=== PATIENT | female | born 1930 | race Hispanic/Latino ===

== ENCOUNTER 2017-02-28 11:27 | Inpatient (IN) | payer MEDICARE ==
[2017-02-28 11:42] VITALS: BMI 19.1
[2017-02-28] MEDS ORDERED: TDAP Vaccine 0.5 mL Syr IM ONE (12:14)
[2017-02-28] MEDS ORDERED: Morphine 2 mg/ml ISec IM STA (12:14)
--- NOTE | 2017-02-28 13:46 | RAD ---
PROCEDURE: HISTORY: hip injury COMPARISON: None TECHNIQUE: AP view of the pelvis and applicable frog leg views obtained. FINDINGS: A right intratrochanteric fracture probably mildly comminuted is suggested. Background right hip joint space narrowing and background generalized osteopenia suggested. left hip evaluation particularly the left subcapital region superiorly, is limited. This could be due to positional changes. Correlate clinically Sclerotic focus projects over the superior right iliac bone bordering the SI joint IMPRESSION: Right intertrochanteric fracture -comminuted. Right femoral head change in right acetabular fossa. These findings and the indeterminate findings regarding the left proximal femur called in to the ER and directly given to NAWAF Morales at 1:40 p.m. 02/28/2017
--- NOTE | 2017-02-28 14:25 | CT ---
PROCEDURE: CT of the Right Hip. HISTORY: hip fracture COMPARISON: Pelvis and right hip radiographs 02/28/2017.. TECHNIQUE: Contiguous axial images of the right hip were obtained without contrast as requested. Coronal and sagittal reformats were generated. Total dose: 326 mGy-cm. This CT exam was performed using one or more of the following dose reduction techniques: Automated exposure control, adjustment of the mA and/or kV according to patient size, and/or use of iterative reconstruction technique. FINDINGS: BONES: A comminuted impacted fracture of the proximal right femur is appreciate the intratrochanteric space with varus angulation resulting. No dislocation or subluxation. Medial margins of the fracture appear to terminate immediately cephalad to the level of the lesser trochanter. The lateral margins go through the greater trochanter. Limited local soft tissue edema is encountered. RIGHT HIP JOINT: No dislocation. Moderate degenerative changes are seen manifest at the weight-bearing portion the right hip joint consisting of cortical sclerosis and limited osteophyte formation. SOFT TISSUES: Limited local edema at fracture site. IMPRESSION: Comminuted impacted fracture proximal right femur through the intertrochanteric region without dislocation. 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 Please see discussion above. .
[2017-02-28 14:45] LABS: ADD MANUAL DIFF? NO
[2017-02-28 14:50] LABS: BASO # 0.05 K/mm3 (0.0-2.0); BASO % 0.3 % (0.0-3.0); EOS # 0.1 (0.0-0.7); EOS % 0.7 % (1.5-5.0); GRAN # 15.43 (1.4-6.5); GRAN % 85.5 % (50.0-68.0); HEMATOCRIT 37.5 % (36.0-48.0); LYMPH % 11.1 % (22.0-35.0); MEAN CELL VOLUME 88.7 fL (80.0-105.0); MEAN CORPUSCULAR HEMOGLOBIN 29.8 pg (25.0-35.0); MEAN CORPUSCULAR HGB CONC 33.6 g/dl (31.0-37.0); MEAN PLATELET VOLUME 10.2 fl (7.0-11.0); MONO # 0.4 (0.1-0.6); MONO % 2.4 % (1.0-6.0); PLATELET COUNT 164 10^3/uL (120.0-450.0); RED CELL DISTRIBUTION WIDTH 13.3 % (11.5-14.5)
[2017-02-28 14:59] LABS: ALB/GLOB RATIO 1.1 (1.1-1.8); ALKALINE PHOSPHATASE 75 U/L (38-133); ALT/SGPT 27 U/L (7-56); AST/SGOT 24 U/L (15-39); BILIRUBIN,TOTAL 0.6 mg/dL (0.2-1.3); BLOOD UREA NITROGEN 16 mg/dL (7-21); CARBON DIOXIDE 26 mmol/L (21-33); CHLORIDE 102 mmol/L (98-107); GFR AFRICAN-AMERICAN > 60; GLUCOSE,RANDOM 129 mg/dL (70-110); INR 1.01 (0.93-1.08); PARTIAL THROMBOPLASTIN TIME 22.9 Seconds (23.7-30.8); POTASSIUM 4.1 mmol/L (3.6-5.0); SODIUM 138 mmol/L (132-148); TOTAL PROTEIN 7.6 g/dL (5.8-8.3)
--- NOTE | 2017-02-28 15:55 | RAD ---
HISTORY: pre-op COMPARISON: 07/29/2016 FINDINGS: LUNGS: The mid lung zone left perihilar nodular opacity concerning for a pulmonary nodule/mass is estimated to be 2.2 cm. This is slightly more conspicuous. No infiltrate appreciated. PLEURA: No significant pleural effusion identified, no pneumothorax apparent. CARDIOVASCULAR: Normal. OSSEOUS STRUCTURES: Generalized osteopenia with thoraco lumbar spondylosis VISUALIZED UPPER ABDOMEN: Atherosclerotic vascular calcifications thoracic and upper abdominal aorta OTHER FINDINGS: None. IMPRESSION: Left mid lung zone pulmonary nodule suspect If not already known, consider CT chest . No pulmonary infiltrate
[2017-02-28] MEDS ORDERED: HYDROmorphone 0.5 mg/0.5 ml ISec IVP STA (16:01)
--- NOTE | 2017-02-28 16:01 | ED PDOC ---
Arrival/HPI - General Chief Complaint: Trauma Time Seen by Provider: 02/28/17 12:12 Historian: Patient - History of Present Illness Narrative History of Present Illness (Text): 02/28/17 16:55 Patient sts she tripped and fell, landing on her right hip area. Patient denies head injury, denies any other trauma or pain. Symptom Onset: Sudden Symptom Course: Unchanged Quality: Throbbing Severity Level: 10 Context: Walking Past Medical History - Provider Review Nursing Documentation Reviewed: Yes - Infectious Disease Hx of Infectious Diseases: None - Tetanus Immunization Tetanus Immunization: Unknown - Cardiac Hx Hypertension: Yes - Neurological Hx Transient Ischemic Attacks (TIA): Yes - Psychiatric Hx Depression: No Hx Emotional Abuse: No Hx Physical Abuse: No Hx Substance Use: No - Surgical History Other/Comment: R index finger sx rhinoplasty - Anesthesia Hx Anesthesia: Yes Hx Anesthesia Reactions: No Hx Malignant Hyperthermia: No - Suicidal Assessment Feels Threatened In Home Enviroment: No Family/Social History - Physician Review Nursing Documentation Reviewed: Yes Family/Social History: Unknown Family HX Smoking Status: Never Smoked Hx Alcohol Use: No Hx Substance Use: No Allergies/Home Meds Allergies/Adverse Reactions: Allergies Egg Derived Allergy (Verified 03/26/16 16:24) ANAPHYLAXIS Home Medications: Home Meds Medication Instructions Recorded Confirmed Montelukast Sodium [Singulair] 1 tab PO DAILY 09/05/13 03/26/16 amLODIPine [Norvasc] 5 mg PO DAILY 03/26/16 03/26/16 Review of Systems - Physician Review All systems were reviewed & negative as marked: Yes - Review of Systems Musculoskeletal: Other (right hip pain) Physical Exam Vital Signs Reviewed: Yes Vital Signs Temp Pulse Resp BP Pulse Ox 02/28/17 16:15 61 18 145/61 100 02/28/17 15:15 69 18 121/63 98 02/28/17 13:31 74 18 122/61 98 02/28/17 12:39 78 18 124/65 98 02/28/17 11:41 97.7 F 81 18 126/67 97 Temperature: Afebrile Blood Pressure: Normal Pulse: Regular Respiratory Rate: Normal Appearance: Positive for: Well-Appearing, Non-Toxic, Uncomfortable Pain Distress: Mild Mental Status: Positive for: Alert and Oriented X 3 - Systems Exam Head: Present: Atraumatic, Normocephalic Pupils: Present: PERRL Extroacular Muscles: Present: EOMI Conjunctiva: Present: Normal Nose (External): Present: Atraumatic Neck: Present: Normal Range of Motion. No: MIDLINE TENDERNESS, Paraspinal Tenderness Respiratory/Chest: Present: Clear to Auscultation, Good Air Exchange Cardiovascular: Present: Regular Rate and Rhythm, Normal S1, S2 Abdomen: No: Tenderness, Distention, Normal Bowel Sounds Back: Present: Normal Inspection. No: Midline Tenderness, Paraspinal Tenderness Upper Extremity: Present: Normal ROM, Capillary Refill < 2s, Other (right elbow with smal abrasion, no active bleeding, no gross contamination.). No: Deformity Lower Extremity: Present: NORMAL PULSES, Tenderness (right hip), Swelling ( right hip), Deformity (right leg slightly externally rotated), Neurovascularly Intact, Capillary Refill < 2 s Neurological: Present: GCS=15, Speech Normal, Motor Func Grossly Intact, Normal Sensory Function Psychiatric: Present: Alert, Oriented x 3 Medical Decision Making ED Course and Treatment: 02/28/17 17:02 Morphine 2 mg IV was ordered. Labs sent, ECG, CXR. Case was d/w patient PMD who accepted an admission and requested Ortho consult with . case was d/w who accepted the case and came to Ed to evaluate the patient at bedside. Patient still c/o pain, Dilaudid 0.5 mg IVP ordered. - Lab Interpretations Lab Results: 02/28/17 14:40 02/28/17 14:40 Lab Results 02/28/17 14:40: Blood Type O POSITIVE, Antibody Screen Negative, BBK History Checked No verified bt 02/28/17 14:40: PT 10.9, INR 1.01, APTT 22.9 L 02/28/17 14:40: Sodium 138, Potassium 4.1, Chloride 102, Carbon Dioxide 26, Anion Gap 14, BUN 16, Creatinine 0.7, Est GFR ( Amer) > 60, Est GFR (Non- Af Amer) > 60, Random Glucose 129 H, Calcium 9.0, Total Bilirubin 0.6, AST 24, ALT 27, Alkaline Phosphatase 75, Total Protein 7.6, Albumin 3.9, Globulin 3.7, Albumin/Globulin Ratio 1.1 02/28/17 14:40: WBC 18.0 H, RBC 4.23, Hgb 12.6, Hct 37.5, MCV 88.7, MCH 29.8, MCHC 33.6, RDW 13.3, Plt Count 164, MPV 10.2, Gran % 85.5 H, Lymph % (Auto) 11.1 L, Dauphin % (Auto) 2.4, Eos % (Auto) 0.7 L, Baso % (Auto) 0.3, Gran # 15.43 H , Lymph # 2.0, Dauphin # 0.4, Eos # 0.1, Baso # 0.05 - RAD Interpretation Narrative RAD Interpretations (Text): 02/28/17 17:01 IMPRESSION: Comminuted impacted fracture proximal right femur through the intertrochanteric region without dislocation. 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 Please see discussion above.. Radiology Orders: 02/28/17 12:13 Hip Right [HIP MIN 2V W/ PELVIS RT] [RAD] Stat 02/28/17 13:46 EXT LOWER W/O CONTRAST RIGHT [CT] Stat 02/28/17 15:27 CHEST PORTABLE [RAD] Stat - Medication Orders Current Medication Orders: Discontinued Medications Hydromorphone HCl (Dilaudid) 0.5 mg IVP STAT STA Stop: 02/28/17 16:02 Last Admin: 02/28/17 16:22 Dose: 0.5 mg Morphine Sulfate (Morphine) 2 mg IM STAT STA Stop: 02/28/17 12:15 Last Admin: 02/28/17 12:42 Dose: 2 mg Tetanus/Reduced Diphtheria/Acell Pertussis (Boostrix Vaccine Inj) 0.5 ml IM .ONCE ONE Stop: 02/28/17 12:15 Last Admin: 02/28/17 12:42 Dose: Disposition/Present on Arrival - Present on Arrival Any Indicators Present on Arrival: No History of DVT/PE: No History of Uncontrolled Diabetes: No Urinary Catheter: No History of Decub. Ulcer: No History Surgical Site Infection Following: None - Disposition Have Diagnosis and Disposition been Completed?: Yes Diagnosis: Hip fracture Disposition: HOSPITALIZED Disposition Time: 16:01 Patient Plan: Admission Patient Problems: Current Active Problems Problem Status Onset Hip fracture Acute Condition: FAIR
--- NOTE | 2017-02-28 20:19 | CARD ---
APPROVED REPORT EKG Measurement Heart [id number] <Conclusion> Normal sinus rhythm Normal ECG
--- NOTE | 2017-03-01 03:36 | CON ---
DATE: 02/28/2017 REASON FOR CONSULTATION: Preop evaluation risk stratification for hip fracture possible OR in a.m. BRIEF CLINICAL HISTORY: This is an 86-year-old female with past medical history significant for hypertension. No documented coronary artery disease. Very active. Lives in second floor. Take stairs. No complaint of chest pain or shortness of breath. Who went for shopping, parked her car, and then went back again to check on the car whether the car crosses the yellow line. There was a steep curve there and patient tripped and stumbled and fell down and sustained right hip fracture, brought to the ER. Denies any chest pain, shortness of breath or palpitation. Denies any dyspnea on exertion. PAST MEDICAL HISTORY: Significant for hypertension. No documented history of coronary artery disease. SOCIAL HISTORY: Denies any history of alcohol abuse. CURRENT MEDICATIONS: Patient takes baby aspirin 81 mg, I believe; Norvasc 5 mg daily; Singulair 10 mg daily. REVIEW OF SYSTEMS: As per HPI. And 14-point negative except as per HPI. PHYSICAL EXAMINATION: As follows: VITAL SIGNS: Height of the patient 5 feet 3 inches. Weight of the patient is 108 pounds, body mass index 19.1 kg/m2. Rest of the examination as follows: temperature afebrile, heart rate 81, blood pressure 126/60. HEENT: PERRLA, extraocular muscles intact. NECK: Supple. No carotid bruit. No thyromegaly. CHEST: Clear to auscultation. HEART: S1 and S2, regular. ABDOMEN: Soft. EXTREMITIES: Clubbing and cyanosis negative. LABORATORY DATA: EKG shows normal sinus rate of 89. Blood workup as follows; WBC 18, hemoglobin 12.6, hematocrit 37.5, platelet count 164. Chemistry shows sodium 130, potassium 4.1, chloride 102, carbon dioxide 26, anion gap of 14, BUN 16, creatinine 0.9. Total protein 7.6, albumin 3.9, albumin/globulin ratio 1.1. IMPRESSION: An 86-year-old female with no significant history of hypertension. Very active lifestyle. No history of chest pain or angina or congestive heart failure or arrhythmia. Status post fall, status post fracture of the hip requiring open reduction and internal fixation. RECOMMENDATION: Patient is cleared to go from cardiology point of view to go for surgery and no absolute contraindication. No history of angina, arrhythmia or congestive heart failure, moderate risk because of underlying age and comorbidity. Recommend perioperative beta nakia, start tonight and resume Norvasc tomorrow if needed and we will follow with you with lipid profile, TSH, hemoglobin A1c. Thank you for providing the opportunity in taking care of Gabriela Lynch. Thank you Dr. Senior, we will follow with you. We will discuss. Raymon Carpio MD
--- NOTE | 2017-03-01 04:03 | CON ---
DATE: 02/28/2017 HISTORY OF PRESENT ILLNESS: An 86-year-old female fell today on the street, [address] about [facility], [address], and fractured her right hip. X-ray shows comminuted intertrochanteric fracture, right hip, with high intertrochanteric at the base of the neck with comminuted greater trochanter. She is in very good condition, sees Dr. Aaron Fraser and I explained for her to get out of bed and ambulate, and we have to secure the hip with an intramedullary pin and Biomet peritroch jannie. We could do the surgery tomorrow at 07:30 that could change, but I am going to get a medical clearance with Dr. Fraser and cardiac consult with Dr. Carpio and we plan to do her right hip surgery for pin in the morning and then we will get her up out of bed, and she will be able to put partial weight on that right hip and then go to rehab possibly for couple of weeks before she goes home to live alone again. FINAL DIAGNOSIS: High intertrochanteric fracture with comminution of the right hip. Narendra Senior DO [facility]
[2017-03-01] MEDS ORDERED: HYDROmorphone 0.5 mg/0.5 ml ISec IVP ONE (06:36)
--- NOTE | 2017-03-01 06:41 | CP.PCM.PN ---
Subjective - Date & Time of Evaluation Date of Evaluation: 03/01/17 Time of Evaluation: 06:41 - Subjective Subjective: Patient was seen at bedside. States that she has pain in left hip. States that they were moving her this morning in the bed, that is why she has pain. States that she was fine all night. Has no other complaints. ROS:Negative except as mentioned above. Medical record was reviewed. This 86 year old woman was admitted after she sustained a right hip fracture when she tripped after parking her car. Has PMH of HTN,TIA,compression fracture T10,chronic rhiniti, B/L cataract surgery,left wrist fracture. Objective - Vital Signs/Intake and Output Vital Signs (last 24 hours): Temp Pulse Resp BP Pulse Ox 98.4 F 83 20 144/73 97 02/28/17 21:06 02/28/17 21:06 02/28/17 21:06 02/28/17 21:06 02/28/17 19:46 Intake and Output: 02/28/17 03/01/17 18:59 06:59 Intake Total 120 Balance 120 - Medications Medications: Current Medications Amlodipine Besylate (Norvasc) 5 mg PO DAILY [facility] Metoprolol Tartrate (Lopressor) 12.5 mg PO BID [facility] Last Admin: 02/28/17 18:47 Dose: 12.5 mg - Labs Labs: PT 10.9 Seconds (9.9-11.8) 02/28/17 14:40 INR 1.01 (0.93-1.08) 02/28/17 14:40 APTT 22.9 Seconds (23.7-30.8) L 02/28/17 14:40 - Constitutional Appears: Well, No Acute Distress - Head Exam Head Exam: ATRAUMATIC, NORMAL INSPECTION, NORMOCEPHALIC - Eye Exam Eye Exam: Normal appearance - ENT Exam ENT Exam: Normal External Ear Exam - Neck Exam Neck Exam: Normal Inspection - Respiratory Exam Respiratory Exam: NORMAL BREATHING PATTERN - Cardiovascular Exam Cardiovascular Exam: absent: JVD - GI/Abdominal Exam GI & Abdominal Exam: absent: Distended - Rectal Exam Rectal Exam: Deferred - Exam Additional comments: Deferred. - Extremities Exam Additional comments: Right hip tenderness positive. - Back Exam Back Exam: NORMAL INSPECTION - Neurological Exam Neurological Exam: Alert, Oriented x3 - Psychiatric Exam Psychiatric exam: Normal Affect, Normal Mood - Skin Skin Exam: Normal Color Assessment and Plan - Assessment and Plan (Free Text) Assessment: Right hip pain. Right hip intertrochantric fracture. HTN. Hx TIA. Chronic rhinitis. Plan: Dilaudid 0.5 mg IV now. For ORIF right hip this AM. Continue present management.
[2017-03-01 06:51] LABS: ADD MANUAL DIFF? NO
[2017-03-01] MEDS ORDERED: HYDROmorphone 0.5 mg/0.5 ml ISec SC PRN (07:12)
[2017-03-01 07:18] LABS: ALB/GLOB RATIO 1.1 (1.1-1.8); ALKALINE PHOSPHATASE 68 U/L (38-133); ALT/SGPT 26 U/L (7-56); AST/SGOT 25 U/L (15-39); BLOOD UREA NITROGEN 16 mg/dL (7-21); CALCIUM 9.1 mg/dL (8.4-10.5); CARBON DIOXIDE 27 mmol/L (21-33); CHLORIDE 102 mmol/L (98-107); CHOLESTEROL 208 mg/dL (130-200); GFR AFRICAN-AMERICAN > 60; GLUCOSE,RANDOM 113 mg/dL (70-110); PHOSPHOROUS 3.2 mg/dL (2.5-4.5); POTASSIUM 4.1 mmol/L (3.6-5.0); SODIUM 139 mmol/L (132-148); TOTAL PROTEIN 7.5 g/dL (5.8-8.3)
[2017-03-01] MEDS ORDERED: Bupivacaine 0.5% Inj(30mL) ONE (07:29)
[2017-03-01 07:32] LABS: BASO # 0.02 K/mm3 (0.0-2.0); BASO % 0.2 % (0.0-3.0); EOS % 0.1 % (1.5-5.0); GRAN # 7.01 (1.4-6.5); LYMPH # 2.6 (1.2-3.4); LYMPH % 24.5 % (22.0-35.0); MEAN CELL VOLUME 88.1 fL (80.0-105.0); MEAN CORPUSCULAR HEMOGLOBIN 29.8 pg (25.0-35.0); MEAN CORPUSCULAR HGB CONC 33.8 g/dl (31.0-37.0); MEAN PLATELET VOLUME 10.4 fl (7.0-11.0); MONO # 0.9 (0.1-0.6); MONO % 8.2 % (1.0-6.0); PLATELET COUNT 149 10^3/uL (120.0-450.0); RED CELL DISTRIBUTION WIDTH 13.6 % (11.5-14.5); WHITE BLOOD COUNT 10.5 10^3/ul (4.5-11.0)
[2017-03-01] MEDS ORDERED: Phenylephrine 10 mg/ml Inj ONE (08:24)
[2017-03-01] MEDS ORDERED: Etomidate 20 mg/10ml Inj IV ONE (08:24)
[2017-03-01] MEDS ORDERED: ePHEDrine 50 mg/ml Inj ONE (08:24)
[2017-03-01] MEDS ORDERED: Metoprolol 1 mg/ml Inj IVP ONE (09:24)
[2017-03-01] MEDS ORDERED: Glycopyrrolate 0.2 mg/ml (2ml vial) ONE (09:25)
[2017-03-01] MEDS ORDERED: Neostigmine Methylsulfate 3mg/3ml Syringe IV ONE (09:36)
[2017-03-01] MEDS ORDERED: Morphine 4 mg/ml ISec ONE (09:37)
[2017-03-01] MEDS ORDERED: Lactated Ringer's 1,000 ML IV SCH (10:01)
[2017-03-01] MEDS ORDERED: Morphine 2 mg/ml ISec IVP PRN (10:01)
[2017-03-01 15:12] LABS: ADD MANUAL DIFF? NO
[2017-03-01 15:17] LABS: BASO # 0.03 K/mm3 (0.0-2.0); BASO % 0.2 % (0.0-3.0); GRAN # 10.85 (1.4-6.5); GRAN % 82.3 % (50.0-68.0); HEMATOCRIT 28.1 % (36.0-48.0); LYMPH # 1.3 (1.2-3.4); LYMPH % 9.6 % (22.0-35.0); MEAN CELL VOLUME 89.5 fL (80.0-105.0); MEAN CORPUSCULAR HEMOGLOBIN 29.6 pg (25.0-35.0); MEAN CORPUSCULAR HGB CONC 33.1 g/dl (31.0-37.0); MEAN PLATELET VOLUME 8.7 fl (7.0-11.0); MONO % 7.9 % (1.0-6.0); PLATELET COUNT 169 10^3/uL (120.0-450.0); RED CELL DISTRIBUTION WIDTH 13.6 % (11.5-14.5); WHITE BLOOD COUNT 13.2 10^3/ul (4.5-11.0)
--- NOTE | 2017-03-01 16:03 | PN ---
DATE: 03/01/2017 REASON FOR CONSULTATION: Followup preop evaluation risk stratification for hip fracture possible OR this morning. BRIEF CLINICAL HISTORY: The patient is lying flat, denies chest pain, shortness of breath or any palpitations awaiting to go the OR. PHYSICAL EXAMINATION: VITAL SIGNS: Temperature afebrile, heart rate 90, blood pressure 120/65. HEENT: PERRLA. Extraocular muscles are intact. NECK: Supple. No carotid bruit, no thyromegaly. CHEST: Clear to auscultation. HEART: S1 and S2 regular. ABDOMEN: Soft. EXTREMITIES: Clubbing and cyanosis negative. LABORATORY DATA: WBC 10.5, hemoglobin 11.8, hematocrit 34.0, and platelet count of 149. Chemistries shows sodium 139, potassium 4.0, chloride 102, carbon dioxide 27, anion gap of 14, BUN 16, creatinine 0.7, TSH . Total cholesterol 208, LDL 137, HDL 50. Hemoglobin A1c is 6.2. IMPRESSION: Status post fall, status post right hip fracture for open reduction this morning. No evidence of reversible ischemia or arrhythmia or congestive heart failure. The patient is cleared to go from cardiac point of view. Discussed with Dr. Senior yesterday, no absolute contraindication. Continue perioperative beta nakia. Can continue low-dose beta-nakia. Continue enoxaparin. Continue amlodipine . We will repeat the blood workup in the morning. Add mag phos. We will get echo to assess LV function in the morning. Raymon Carpio MD
--- NOTE | 2017-03-01 19:56 | OP ---
PROCEDURE DATE: 03/01/2017 PREOPERATIVE DIAGNOSIS: Comminuted intertrochanteric fracture, right hip with comminuted greater trochanter. POSTOPERATIVE DIAGNOSIS: Comminuted intertrochanteric fracture, right hip with comminuted greater trochanter. PROCEDURE: Open reduction internal fixation of the comminuted displaced intertrochanteric fracture with a Biomet peritrochanteric jannie using a jannie that was 11 mm wide x 170 mm long, lag screw of 90 mm long and locked distally with a 28 mm 5.0 cortical screw. SKEWER UP SURGEON: podiatry resident . TYPE OF ANESTHESIA: General endotracheal. DESCRIPTION OF PROCEDURE: The patient was taken to the OR, right hip prepped and draped in a sterile fashion on the fracture table with gentle traction. X-rays showed that we could reduce to a highly comminuted fracture, but it was still displaced making the surgical procedure more difficult. We made a 2-inch incision above the greater trochanter. With a comminuted piece of greater trochanter, we put the threaded-tip guidewire through the fracture into the distal shaft after three tries. Once it was in an acceptable position, we reamed the proximal femur 5 cm with the 14 mm reamer. Then, we inserted the bead-tip guidewire to allow us to introduce 170 mm long peritrochanteric jannie, which was done. Then, we put the outrigger on to allow us to put in a second incision to get the guide pin in the femoral head and neck. This was done under C-arm control. There was a longer calcar in the AP view and slightly posterior on the lateral view [id number] from subchondral. Then, we put in the lag screw which was 90 mm long lag screw, kept it subchondral and fracture was reduced. Then, we put in the most distal locking screw which was a 5-mm, 28-mm long cortical screw. X-rays showed good position of the fracture and the hardware. Three wounds were irrigated with normal saline Kantrex, closed in layers with #1 Vicryl for the fascia proximally, 2-0 Vicryl subcutaneous tissue and skin with stainless steel cherelle. The other two wounds were closed in a similar fashion. The patient was taken to the recovery room in good condition. Narendra Senior DO [facility] # [id number] [facility]
[2017-03-01] MEDS ORDERED: ceFAZolin 1 gm in NS 1 GM/100 ML BAG IVPB ONE (20:00)
--- NOTE | 2017-03-01 20:37 | HP ---
HISTORY OF PRESENT ILLNESS: The patient is an 86-year-old female who is admitted with a right hip fracture. Apparently, the patient was driving, she parked her car, went around to get to the other side when she tripped and fell fracturing her hip. She denies any dizziness, palpitations, loss of consciousness, or syncope. The patient is evaluated in the emergency room. Consultation with Dr. Senior was called and the patient is to be admitted for surgery tomorrow. PAST MEDICAL HISTORY: Positive for hypertension since 2003. She suffered a transient ischemic attack in [place] in 2003. She is known to have a compression fracture of T10 since 10/2004. She also has chronic rhinitis. She is status post bilateral cataract surgery, status post left wrist fracture in 2013 and recently had a trip and fall and suffered a fracture of her left zygoma in December. In 2015, she fractured her left index finger when it was caught in a car door. She was repaired surgically and pins were removed in 07/2017. ALLERGIES: SHE IS KNOWN TO BE ALLERGIC TO [employer]. MEDICATION: Medications at the time of admission included Norvasc 5 mg, aspirin 81 mg, and Singulair 10 mg. SOCIAL HISTORY: She has not smoked cigarettes since 1968. She is a nonalcoholic drinker. She is a since 2007 and has 2 sons, one lives locally and one is in [place]. REVIEW OF SYSTEMS: Otherwise unremarkable. PHYSICAL EXAMINATION GENERAL: The patient is awake, alert and oriented. HEENT: Unremarkable. NECK: Supple. There is no lymphadenopathy. No goiter. LUNGS: Clear to auscultation and percussion. HEART: Regular. No murmurs are appreciated. ABDOMEN: Soft and nontender. EXTREMITIES: Free of cyanosis, clubbing, or edema. Positive for right hip fracture. NEUROLOGIC: The patient is awake, alert, and oriented with no focal neurological signs. LABORATORY DATA: Reveal a white blood cell count of 9.0, hemoglobin is 12.9, hematocrit 39.0 and platelet count is 236. Sodium is 143, potassium is 4.4, blood urea nitrogen is 22, creatinine 1.2, nonfasting glucose is 147. EKG shows regular sinus rhythm. Chest x-ray shows a possible nodule in the mid left lung field this will be compared to previous studies is this new or present I do not know at this time. X-rays of the extremity show fracture of the proximal right femur. IMPRESSION AND PLAN: This 86-year-old female who was admitted with a hip fracture. She is to be evaluated by Dr. Senior and undergo surgical repair of the hip fracture in the morning. Narendra Fraser MD
--- NOTE | 2017-03-02 00:20 | PN ---
DAILY PROGRESS NOTE SUBJECTIVE: This is an 86-year-old woman who fell outside just yesterday fracturing her right hip. Today, she is in the operating room with __Mehdi___ for surgical intervention and repair of the fracture. PLAN: We will follow her closely in the perioperative and postoperative period and until she is off for physical therapy. Aaron Fraser MD MTDD
[2017-03-02 07:14] LABS: ADD MANUAL DIFF? NO
[2017-03-02 07:18] LABS: BASO # 0.03 K/mm3 (0.0-2.0); BASO % 0.4 % (0.0-3.0); EOS % 0.4 % (1.5-5.0); GRAN # 5.44 (1.4-6.5); GRAN % 65.8 % (50.0-68.0); HEMATOCRIT 25.1 % (36.0-48.0); LYMPH # 1.9 (1.2-3.4); LYMPH % 23.3 % (22.0-35.0); MEAN CELL VOLUME 89.6 fL (80.0-105.0); MEAN CORPUSCULAR HEMOGLOBIN 29.3 pg (25.0-35.0); MEAN CORPUSCULAR HGB CONC 32.7 g/dl (31.0-37.0); MONO # 0.8 (0.1-0.6); MONO % 10.1 % (1.0-6.0); PLATELET COUNT 162 10^3/uL (120.0-450.0); RED CELL DISTRIBUTION WIDTH 13.8 % (11.5-14.5); WHITE BLOOD COUNT 8.3 10^3/ul (4.5-11.0)
[2017-03-02 08:20] LABS: ALKALINE PHOSPHATASE 49 U/L (38-133); ALT/SGPT 22 U/L (7-56); AST/SGOT 29 U/L (15-39); BILIRUBIN,TOTAL 0.8 mg/dL (0.2-1.3); BLOOD UREA NITROGEN 14 mg/dL (7-21); CALCIUM 8.2 mg/dL (8.4-10.5); CARBON DIOXIDE 29 mmol/L (21-33); CHLORIDE 101 mmol/L (98-107); GFR AFRICAN-AMERICAN > 60; GLUCOSE,RANDOM 112 mg/dL (70-110); MAGNESIUM 1.9 mg/dL (1.7-2.2); POTASSIUM 4.8 mmol/L (3.6-5.0); SODIUM 137 mmol/L (132-148)
[2017-03-02] MEDS: Enoxaparin 30 mg Syringe SC SCH (10:36)
--- NOTE | 2017-03-02 13:58 | RAD ---
PROCEDURE: Intraoperative Fluoroscopy. HISTORY: RIGHT HIP INTRAMEDULLARY NAIL FINDINGS: Fluoroscopic assistance was provided. Approximately 73.8 seconds fluoroscopy time during this procedure. Please refer to the operative report for additional details.
--- NOTE | 2017-03-02 14:15 | PN ---
DATE: 03/02/2017 FIRST DAY POSTOP NOTE Had ORIF of right hip on 03/01/2017. She has no complaints of undue pain. Hemoglobin did drop from admission of 12.6 to 8.2, so we will give her two units of packed cells. We will encourage her to get up out of bed. She can put weight on her leg, and she is very depressed today and she does not want to live any longer, so I am going to get a psychological consult with to help her get rid of her depression, so she could participate in therapy. She would be able to put weight on her leg and ambulate with a walker. We will give her two units of packed cells to help her feel stronger. Maybe this will help her be not so depressed too. I plan on sending her to [facility] for a subacute rehab when she is medically cleared. Narendra Senior DO MTDD
--- NOTE | 2017-03-02 14:25 | PN ---
DATE: 03/02/2017 REASON FOR CONSULTATION: Postop followup for hip fracture, preop evaluation before surgery. SUBJECTIVE: The patient is status post postop right hip surgery, lying flat; not complaining of chest pain, shortness of breath or any palpitation. OBJECTIVE: Lying flat in the bed, not in apparent distress. PHYSICAL EXAMINATION: VITAL SIGNS: Temperature afebrile, heart rate 92, blood pressure 107/56. HEENT: PERRLA. EOM intact. NECK: Supple. No carotid bruit or thyromegaly. CHEST: Clear to auscultation. HEART: S1 and S2 regular. ABDOMEN: Soft. EXTREMITIES: Clubbing and cyanosis negative. LABORATORY DATA: Blood workup as follows: WBC 8.3, hemoglobin 8.2, hematocrit 25.1, platelet count 162. Chemistry shows sodium 137, potassium 4.0, chloride 101, carbon dioxide 29, anion gap of 12, BUN 14, creatinine 0.8, phosphorus 3, magnesium 1.9. IMPRESSION: The patient is an 86-year-old female with no significant past medical history except hypertension, admitted after a fall, tripped outside and sustained fracture of right hip, status post open reduction and internal fixation, hypertension, postop anemia. PLAN: I recommended continued DVT prophylaxis. Continue low-dose beta nakia, 12.5 b.i.d. Amlodipine was started. I will get echo to assess LV function. Two units of packed RBC blood transfusion was ordered by Dr. Senior. We will give Lasix in between packed RBC transfusion. Thank you in taking care of the patient. We will follow with you. Raymon Carpio MD
--- NOTE | 2017-03-03 04:30 | CON ---
DATE: 03/02/2017 PSYCHIATRIST: Dr. Anthony. HISTORY OF PRESENT ILLNESS: The patient is 86 years old female not known previous psychiatric history. The patient denied history of depression, denied history of suicidal attempt, denied being on a psychotropic medications. The patient was admitted on surgical floor, status post fall. The patient fractured her right hip. Psych consult was called for evaluation of possible suicidal ideation. The patient was seen and examined. Discussed with orthopedic surgeon Dr. Senior as well as primary care physician Dr. Fraser. The patient presented to be alert and oriented, pleasant cooperative. The patient reported that she has for the past 2 years. The patient reported that she has feelings that she will be never the same again. The patient also afraid of future fallings. The patient also reported that she has incidence where she could defecate on herself and it is very distressing for the patient. The patient reported that she went to the [facility] in the past. She is on special diet right now, fat free diet. The patient reported that present moment she cannot have her life back. As per Dr. Senior, the patient can ambulate within next 2 weeks, but the patient said that it is not important because she will be scared of walking again because of falls. The patient reported that she is not depressed. She denied that she feels hopeless or helpless. The patient also denied any hallucinations. No memory problems. The patient is quite aware what is going on with her from the magical standpoint. At the same time, the patient said that she was thinking about end of her life because she has "no curiosity for life." The patient also reported that she use to enjoy to go to [facility] right now. She does not feel comfortable to go their anymore because of risk of falls. The patient was making statements like "I need to do what I need to do." "Why you cannot respect my decision, its time for meet to go." At the same point, the patient is willing to have surgery, is willing to go subacute rehab and willing to participate in treatment plan. PHYSICAL EXAMINATION VITAL SIGNS: This scientific writer reviewed vital signs; temperature 98.3, pulse of 92, blood pressure 107/56, respirations 18, oxygen saturation of 98. MEDICATIONS: Reviewed. The patient currently on Tylenol, Norvasc, Lovenox, Dilaudid 0.5 mg subcutaneously q. 4 hours p.r.n. The patient did not ask for any opioids, Lopressor 12.5 mg twice a day, morphine 2 mg IV push q. 15 minutes p.r.n. for pain as well as Zofran. LABORATORY DATA: Labs reviewed and seems to be within normal limits. Hemoglobin 8.2, hematocrit 25. Coagulation reviewed. Chemistry reviewed. Reports reviewed. The patient has multiple medical issues. The patient had a history of hypertension, transient ischemic attack, the patient had compression fracture in 2004, the patient has cataract surgery done and the patient also had history of falls. In regards of the social support, the patient has 2 sons, one son lives in [place] and other son lives in [place]. The patient has 2 sisters, one of them terminally ill with stage IV breast cancer. The patient reported that she is very close to them. MENTAL STATUS EXAMINATION: The patient appears to be alert and oriented, pleasant and cooperative. Good eye contact. Speech was normal rate, tone, quality, and quantity. Mood described, I am not depressed. Affect was reactive. Mood congruent. Thought content, the patient denied visual, auditory, or tactile hallucinations. Denies paranoid ideation. The patient denied thoughts of harming others at the same time. The patient feels that this is her right to make decision about her own life and the patient made it clear that she was thinking about ending up her life. The patient said that she does not have any plan or intent to do it at present moment, but in the future. She cannot guaranty that she would like to have the quality of life what she is having right now. Insight and judgment are limited. Impulses are low controlled. This scientific writer spent more than 45 minutes with this patient, supportive therapy was provided, . This scientific writer would like to have second opinion from psychiatrist, which is covering hospital over this weekend. IMPRESSION: Most likely, the patient has adjustment disorder. The patient denied being depressed. Does not appear to be depressed. At this same time, the patient has lot of medical issues and this scientific writer would like to rule out mood disorder due to general medical condition. PLAN: The patient does not need to be on one-to-one at present moment. The patient participating in treatment plan. The patient's family should involved. This scientific writer discussed this case with Dr. Senior as well as Dr. Fraser. Second opinion will be call from Dr. Vee, who will be on-call over this weekend. We will discuss options. Thank you very much for letting me to participate in the care of your patient. We will get back to you and advise accordingly. The patient is not psychiatrically cleared yet. Please do not discharge patient before psychiatric clearance. Christina Dyer MD
[2017-03-03 07:20] LABS: ADD MANUAL DIFF? NO
[2017-03-03 07:22] LABS: BASO # 0.03 K/mm3 (0.0-2.0); BASO % 0.3 % (0.0-3.0); GRAN # 7.05 (1.4-6.5); HEMATOCRIT 24.2 % (36.0-48.0); LYMPH % 19.9 % (22.0-35.0); MEAN CELL VOLUME 89.6 fL (80.0-105.0); MEAN CORPUSCULAR HEMOGLOBIN 29.6 pg (25.0-35.0); MEAN CORPUSCULAR HGB CONC 33.1 g/dl (31.0-37.0); MEAN PLATELET VOLUME 9.2 fl (7.0-11.0); MONO # 0.9 (0.1-0.6); MONO % 8.8 % (1.0-6.0); PLATELET COUNT 175 10^3/uL (120.0-450.0); RED CELL DISTRIBUTION WIDTH 13.7 % (11.5-14.5); WHITE BLOOD COUNT 9.9 10^3/ul (4.5-11.0)
[2017-03-03 07:37] LABS: ALB/GLOB RATIO 0.9 (1.1-1.8); ALKALINE PHOSPHATASE 52 U/L (38-133); ALT/SGPT 26 U/L (7-56); AST/SGOT 31 U/L (15-39); BILIRUBIN,TOTAL 0.8 mg/dL (0.2-1.3); BLOOD UREA NITROGEN 17 mg/dL (7-21); CALCIUM 8.2 mg/dL (8.4-10.5); CARBON DIOXIDE 29 mmol/L (21-33); CHLORIDE 100 mmol/L (98-107); GFR AFRICAN-AMERICAN > 60; GLUCOSE,RANDOM 96 mg/dL (70-110); POTASSIUM 3.8 mmol/L (3.6-5.0); SODIUM 137 mmol/L (132-148); TOTAL PROTEIN 6.1 g/dL (5.8-8.3)
[2017-03-03] MEDS: Enoxaparin 30 mg Syringe SC SCH (09:47)
[2017-03-03 11:02] LABS: ADD MANUAL DIFF? NO
[2017-03-03 11:05] LABS: BASO # 0.04 K/mm3 (0.0-2.0); BASO % 0.4 % (0.0-3.0); EOS % 0.2 % (1.5-5.0); GRAN # 7.24 (1.4-6.5); GRAN % 69.4 % (50.0-68.0); LYMPH # 2.2 (1.2-3.4); LYMPH % 20.7 % (22.0-35.0); MEAN CELL VOLUME 89.2 fL (80.0-105.0); MEAN CORPUSCULAR HEMOGLOBIN 29.7 pg (25.0-35.0); MEAN CORPUSCULAR HGB CONC 33.3 g/dl (31.0-37.0); MEAN PLATELET VOLUME 8.8 fl (7.0-11.0); MONO % 9.3 % (1.0-6.0); PLATELET COUNT 180 10^3/uL (120.0-450.0); RED CELL DISTRIBUTION WIDTH 13.6 % (11.5-14.5); WHITE BLOOD COUNT 10.4 10^3/ul (4.5-11.0)
--- NOTE | 2017-03-03 11:55 | PN ---
DATE: 03/03/2017 The patient is presently 2 days postop from right hip fracture with a peritrochanteric jannie. Her hemoglobin dropped from 11.5 on admission to 8.0 and hematocrit from 34 to 24, shehas complains of weakness and she did sit at the side of the bed yesterday. We will repeat her CBC tomorrow and tell her to get up by the bed, sit at the edge of the bed and she does not appear to be as depressed as before. The pain is not too much of a factor like it was before. I told her to do quad set exercises and move around, so she could decrease the chance of DVT, so reevaluate her tomorrow, hopefully to do more therapy tomorrow or especially Sunday, but we will get her out of bed and sit at the edge of the bed today. Narendra Senior DO MTDD
--- NOTE | 2017-03-03 21:26 | CON ---
DATE: 03/03/2017 HISTORY OF PRESENT ILLNESS: The patient is an 86-year-old female with no prior psychiatric history who is being followed by psychiatry on a surgical floor after she fell and broke her hip. Psychiatrist is following the patient for evaluation of possible suicidal thoughts. I reviewed her Dr. Dyer's notes, which indicated the patient was making provocative statements about want to and having a possible plan to do so. However, at the same time, she has been cooperative and being future oriented regarding her plan and goes through with surgery at the subacute rehab and willingness to participate in treatment plan. I met with the patient at bedside and she seems to be oriented, circumstances, month, and year. She indicates that she is very comfortable and has a lot of discomfort related to her fracture. The patient continues to make provocative statements indicating "I don't want to endure anymore pain." I indicated to the patient that we are concerned about her mental status and the patient apprise "you should be concerned." The patient at the same time denies having any active suicidal thoughts. She denied any plans to take her own life, although she indicate an towards life whether living or dying and then she has no pleasure anymore in life because of her current pain and they are falling again. She is not hallucinating and she is not overtly delusional. Her insight and judgement are completely limited. She has been in good control on the unit and the delirium does not appear to be a factor at all. However, adjustment disorder does appear to be an issue as well as her participation, willingness to cooperative with psychiatric team as the patient indicate that she did not want to further talk with me during my session today. I reviewed medications, vital signs, and laboratory data. IMPRESSION: Adjustment disorder, likely depression and would like to rule out mood disorder secondary to general medical condition. PLAN: At this time, we will not start at one-to-one as the patient has consistently denied having any thoughts to harm herself, although she does make her provocative statements. She is quite consistent in her willingness to participate in the treatment plan including her medical team's recommendations as well as subacute rehab. However, due to the consistency in making such statements, and the vagueness of the statements, psychiatry will continue to follow up and psychiatry does not psychiatrically clear her. At this time, she does not want to sign into the psychiatric unit, however, she is medically clear, but this provide belief that she should be screened as a precautionary measure and this provider will visit with her in the morning and determine whether she needs to have one-to-one initiated at that time. Alberto Vee MD
--- NOTE | 2017-03-04 05:54 | PN ---
DAILY PROGRESS NOTE DATE: 03/03/2017 SUBJECTIVE: The patient was seen this Sunday morning on room 560, bed 3. She is actually quite a bit clinically improved and more cooperative today. She is feeling weak and tired. Her hemoglobin has dropped to 8. She spoke more about friends and contacts and people that have been calling her interested and worrying about her. She talked about the future after discharge to home and agreed to proceed with transfusion of 2 units of packed red blood cells that were ordered the other day. I explained to her that this would make her feel much better and would help in her recovery that not taking the transfusion would not necessarily be a fatal decision, but would leave her weak and uncomfortable for a prolonged period of time, so the consent was formed and signed after and witnessed by the nurse. PHYSICAL EXAMINATION: LUNGS: Clear. HEART: Regular. SKIN: Pale. EXTREMITIES: Showed only trace edema. IMPRESSION: 1. Hip fracture. 2. Hypertension. 3. reaction to fall, injury, illness, and fear of the future. PLAN: We will proceed with transfusion and psychiatry follow up appreciated. We will followup and speak with her again in the morning. Aaron Fraser MD MTDD
[2017-03-04 07:31] LABS: MEAN CELL VOLUME 87.8 fL (80.0-105.0); MEAN CORPUSCULAR HEMOGLOBIN 29.9 pg (25.0-35.0); MEAN CORPUSCULAR HGB CONC 34.1 g/dl (31.0-37.0); MEAN PLATELET VOLUME 9.9 fl (7.0-11.0); PLATELET COUNT 172 10^3/uL (120.0-450.0); RETIC% 1.33 % (0.5-1.5)
[2017-03-04 07:45] LABS: ALB/GLOB RATIO 0.9 (1.1-1.8); ALKALINE PHOSPHATASE 58 U/L (38-133); ALT/SGPT 31 U/L (7-56); AST/SGOT 32 U/L (15-39); BILIRUBIN,TOTAL 1.3 mg/dL (0.2-1.3); BLOOD UREA NITROGEN 14 mg/dL (7-21); CALCIUM 8.2 mg/dL (8.4-10.5); CARBON DIOXIDE 31 mmol/L (21-33); CHLORIDE 103 mmol/L (95-110); GFR AFRICAN-AMERICAN > 60; GLUCOSE,RANDOM 93 mg/dL (70-110); SODIUM 139 mmol/L (132-148); TOTAL PROTEIN 6.3 g/dL (5.8-8.3)
[2017-03-04 07:55] LABS: HEMATOCRIT 32.3 % (36.0-48.0)
--- NOTE | 2017-03-04 09:32 | PN ---
DATE: 03/02/2017 SUBJECTIVE: The patient was seen this Sunday morning in room 560, bed 1. I have known Gabriela for many years. I was actually quite surprised for the tone of conversation we had today. She is requesting a DO NOT RESUSCITATE order to be written and she thought she is very frustrated and feeling that her life that she is known to be is over, and this fractured hip will result in severe compromise of her lifestyle and therefore, she has no further will or interest or reason to live. She does not believe she will harm herself in the hospital. I feel she is a suicidal risk as we did discuss whether or not she would act at home. She told me she feels strongly that having seen her with long chronic illness, she had conversation with friends, who did poorly after her hip fracture, and because in the past year she has had a fracture to the wrist as a result of fall, a fracture of the left zygoma with some facial numbness because of the fall and now this hip fracture, she feels she will never be able to engage any activities that she is known or would be able to enjoy herself. She already has a lengthy conversation with Dr. Senior yesterday and earlier today and psychiatric consultation with Dr. Vasquez, was already called. I spoke with the patient in great length for over 35 minutes explaining that I expect her to get well after hip replacement because she was so active all her life. She should expect a full recovery in her activity level in a few weeks would be the same as it was a few days ago. __After some lengthy conversation, she has been finally agreed to speak with psychiatrist, not so much to change her mind, whatsoever, I would not be knowing when having this detailed conservation with her and should be sure if she is making these decisions of sound mind. I am not sure she is reacting to the severity of the homeless or anesthesia. We will continue on the medical floor through the weekend. We will let Psychiatry to see her and follow closely. Later this morning, I spoke with Dr. Vasquez giving her details of the patient's history as noted above. I also met with the patient's son, Perez, in my office and went over the difficulties we face, and later in the late afternoon or early evening. I spoke with her son, Aime from [place] and suggested to him that he come to [place] to see his mother given the circumstances of her illness and wishes she is praying for. Aaron Fraser MD MTDKallie
[2017-03-04] MEDS: Enoxaparin 30 mg Syringe SC SCH (09:39)
--- NOTE | 2017-03-04 10:16 | CP.PCM.PCO ---
Addendum Addendum: Pt refuses interview at this time. Reviewed and appreciate Amara Romo, RN' s note, patient has suicidal plan after discharge from hospital. Will continue with 1:1. 03/04/17 10:16
--- NOTE | 2017-03-04 21:23 | PN ---
DATE: 03/04/2017 SUBJECTIVE: The patient consented to do blood replacement. Hemoglobin now is much improved, it went up from 8.0 to 11.0 and no increase in her white count, feels much more comfortable. We will get her up out of bed probably tomorrow and encourage her to ambulation with a walker. The wound is dry. PLAN: I am taking the sutures out in 2 to 3 weeks. Narendra Senior DO
[2017-03-05] MEDS: Enoxaparin 30 mg Syringe SC SCH (09:28)
--- NOTE | 2017-03-05 11:52 | PN ---
DATE: 03/04/2017 SUBJECTIVE: The patient is seen this Sunday morning in room 560, bed 3. One-to-one watch is in place as well as psychiatrist yesterday. The patient is sitting out of bed, comfortable, awake, alert and in no acute distress. She received 2 units of packed red cells yesterday and feels much better because of that. She denies any significant hip pain or postoperative pain. PHYSICAL EXAMINATION: HEENT: Head and neck are unremarkable. LUNGS: Show good aeration right and left. HEART: Regular, not tachycardic. EXTREMITIES: Show no edema. ASSESSMENT AND PLAN: I spoke with the patient at great length, she would like to discontinue the one-to-one and she reassured me she will not do anything to harm herself while here in the hospital. Then she was also explained that she is waiting to do that when she gets home. She has a plan that she will place herself in her car, in her close garage with the car engine running, ending her life peacefully. I told her this is not acceptable, cannot be condoned, it is against all personal, professional, and holiness with this practices. 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 Later in the day, I spoke to the patient's son Aime in [place] who was planning a trip within the next day or two to come to [place]. I brought him up to date on the that we are in now as much as, we would like to proceed with physical therapy at Subacute Rehab Facility, this can absolutely not be done as she will not accepted to rehab facility with a one-to-one or suicidal ideation. We will need to talk with psychiatry, case workers and social workers, etc tomorrow to develop our plan. Aaron Fraser MD MTDKallie
--- NOTE | 2017-03-05 14:13 | PN ---
REASON FOR CONSULTATION: Postop followup for hip fracture. SUBJECTIVE: The patient is sitting on chair. Denies any chest pain, shortness of breath or any palpitation. OBJECTIVE GENERAL: Sitting in chair, comfortable, not in apparent distress. Refused echocardiography. VITAL SIGNS: Temperature afebrile, heart rate 95, blood pressure 123/63. HEENT: PERRLA, extraocular muscles intact. NECK: Supple. No carotid bruit. No thyromegaly. CHEST: Clear to auscultation. HEART: S1 and S2, regular. ABDOMEN: Soft. EXTREMITIES: Clubbing and cyanosis negative. LABORATORY DATA: Blood workup as follows; WBC 9, hemoglobin 11, hematocrit 32.3, platelet count 172. Chemistry shows sodium of 139, potassium 4, chloride 103, carbon dioxide of 31, anion gap of 9, BUN of 14, and creatinine 0.6. IMPRESSION: Status post fall, status post hip fracture, status post internal fixation and hypertension. RECOMMENDATIONS: Recommend to continue DVT prophylaxis, any low-dose beta nakia, continue amlodipine, status post RBC packed transfusion, anemia improved and is now 11. We will repeat the blood workup tomorrow. The patient is currently being seen by psychiatrist for 1:1 and for suicidal ideation. The patient refused echo and says that her heart does not change, so does not want to get echo. We will follow with you. Thank you Dr. Fraser for providing the opportunity in taking care of the patient. Continue metoprolol, continue DVT prophylaxis and continue amlodipine. We will repeat the blood workup in the morning. Raymon Carpio MD MTDKallie
--- NOTE | 2017-03-05 20:59 | PN ---
HISTORY OF PRESENT ILLNESS: Shortly, the patient is an 86-year-old female with not known previous psychiatric history. The patient denied history of being on psychotropic medication or history of being admitted to the psychiatric impatient unit. The patient was admitted on the medical floor status post fall. The patient had hip fracture, had surgery on last . Psych consult was called for evaluation of possible suicidal ideation. Please see initial consultation note on last Sunday on 03/02/2017. Over the weekend, the patient was started on one-to-one because the patient expressed suicidal ideation with the plan to poison herself with carbon monoxide in her home. This creative services writer followed up today with this patient. The patient presented to be irritable and angry that one-to-one was started. The patient said that she does not have intent of killing herself in near future because it is "not right time yet." The patient said that she will never hurt herself while she is in the hospital or in subacute rehab. The patient said that she has some hopes for the future that she will be able to walk again, but in case if she will be burden for her family, she will commit suicide. The patient contracted for safety during the interview. This creative services writer will discontinue one-to-one for now. The patient is pleasant, cooperative. The patient participated in treatment plan. The patient has fair appetite. The patient also has participated in physical therapy. The patient denies any psychotic symptoms and does not presume to be psychotic. The patient's son, Perez, approached this creative services writer, but the patient did not give consent for disclose any information about her, but Perez expressed his concerns about the patient's safety. Perez's phone number is [phone]. As per son, the patient was verbalizing thoughts of harming herself if she will not be able walking again. The patient had never been suicidal and the patient's son denied history of suicidal attempts. The patient was making statements like her sugar cane planter as well as 2 of the sisters were in agreement with her plan to commit suicide if the patient will be disabled. Perez said that this is absolutely incorrect information. Perez also said that the patient had bowel problems, but she had never been evaluated by GI team. We will consider to have Gastroenterology evaluation. PHYSICAL EXAMINATION: VITAL SIGNS: Reviewed. Temperature 98.3, pulse 87, blood pressure 131/65, respirations 19, oxygen saturation 96. MEDICATIONS: Reviewed. Tylenol, Norvasc, Benadryl, Lovenox, Furosal, Lopressor, and Zofran. LABORATORY DATA: Reviewed, most recent was from yesterday, seems to be stable. MENTAL STATUS EXAMINATION: The patient presented to be alert, mildly irritable and angry because she is on one-to-one observation. Mood described as not depressed, but the patient made it clear that the patient lost interest in life and nothing makes her feel happy. Most likely, the patient is anhedonic. Affect was constricted. Thought process was coherent, goal directed, mildly circumstantial. Thought content, the patient denied visual *------* hallucination. Denied paranoid ideation. The patient denied thoughts of killing herself or others at the moment of the interview, but if the patient will be disabled, the patient said that she will commit suicide then. Insight and judgment limited. Impulses are well controlled. IMPRESSION: Rule out major depressive disorder, rule out adjustment disorder. PLAN: This creative services writer discussed the case with pediatric social worker as well as the patient's son Perez degroot this creative services writer, , but this creative services writer did not disclose any information about the patient because the patient did not give permission to disclose any information to her family. This creative services writer also discussed case with Dr. Fraser over the phone. My recommendations are going to be, this creative services writer does not feel that the patient needs to be on one-to-one as of now because the patient contracted for safety. The patient is not psychotic. The patient said that she has hopes for the future. She denied that she wants to harm herself in the hospital or she will not kill herself in the subacute rehab. The patient said that she has hopes that she will be able to walk again, but in case if the patient will be not able to have quality of life as before, the patient would poison herself with carbon monoxide. Family meeting needs to take place, also primary care physician as well as Dr. Senior needs to be involved. This creative services writer has impression that it will be safe for the patient to go to subacute rehab, but from subacute rehab, the patient needs to have psychiatric evaluation as well as possible commitment into the [facility] because the patient will not sign consent for treatment with this creative services writer and this creative services writer has only voluntary unit here. Meanwhile, this creative services writer also cannot exclude if the patient will be walking back again, if she will be better from the physical standpoint, which is highly likely, the patient will be not suicidal and will be not depressed. Case was discussed in details with Case Management as well as Dr. Fraser as well as collateral information was obtained from the patient's son, Perez. Should you have any questions, give me a call back. Thank you very much for letting me participate in care of your patient. Christina Dyer MD
[2017-03-06 06:48] LABS: ADD MANUAL DIFF? NO
[2017-03-06 07:09] LABS: BASO # 0.05 K/mm3 (0.0-2.0); BASO % 0.6 % (0.0-3.0); EOS # 0.4 (0.0-0.7); EOS % 5.1 % (1.5-5.0); GRAN # 4.71 (1.4-6.5); GRAN % 55.3 % (50.0-68.0); HEMATOCRIT 32.8 % (36.0-48.0); LYMPH # 2.7 (1.2-3.4); LYMPH % 31.2 % (22.0-35.0); MEAN CELL VOLUME 89.9 fL (80.0-105.0); MEAN CORPUSCULAR HEMOGLOBIN 29.9 pg (25.0-35.0); MEAN CORPUSCULAR HGB CONC 33.2 g/dl (31.0-37.0); MEAN PLATELET VOLUME 9.3 fl (7.0-11.0); MONO # 0.7 (0.1-0.6); MONO % 7.8 % (1.0-6.0); PLATELET COUNT 242 10^3/uL (120.0-450.0); RED CELL DISTRIBUTION WIDTH 13.7 % (11.5-14.5); WHITE BLOOD COUNT 8.5 10^3/ul (4.5-11.0)
[2017-03-06 07:29] LABS: ALB/GLOB RATIO 0.9 (1.1-1.8); ALKALINE PHOSPHATASE 57 U/L (38-133); ALT/SGPT 43 U/L (7-56); AST/SGOT 43 U/L (15-39); BILIRUBIN,TOTAL 1.1 mg/dL (0.2-1.3); BLOOD UREA NITROGEN 15 mg/dL (7-21); CALCIUM 8.6 mg/dL (8.4-10.5); CARBON DIOXIDE 31 mmol/L (21-33); CHLORIDE 103 mmol/L (95-110); GFR AFRICAN-AMERICAN > 60; GLUCOSE,RANDOM 98 mg/dL (70-110); MAGNESIUM 1.9 mg/dL (1.7-2.2); POTASSIUM 3.8 mmol/L (3.6-5.0); SODIUM 141 mmol/L (132-148); TOTAL PROTEIN 6.3 g/dL (5.8-8.3)
--- NOTE | 2017-03-06 08:56 | PQF ANEMIA ---
This form is a permanent part of the medical record Dr. Fraser, H/H dropped to 03/29 after hip repair surgery requiring 2 UPRBC. Please provide type and specificity of anemia treated, acute blood loss anemia, chronic blood loss, other. Clarification of your documentation is requested to better reflect the severity of illness and intensity of treatment of your patient. Indicators present [x] Anemia [] Drop in H&H from []___ to []___ [] Hypotension [] GI Bleed [x] Transfusion(s) [x] Acute bleed other sites ; hip fracture [] Tachycardia [] Surgical Procedure Blood Loss (expected not a complication) Other:[] Location in the medical record that reflects the above clinical findings: [] Treatment Provided: [] PHYSICIAN'S RESPONSE Based on your medical judgment of the clinical indicators outlined above, are you treating this patient for a known or suspected: [x] Acute blood loss anemia [] Chronic blood loss anemia [] Acute on Chronic blood loss anemia [] Anemia due to malignancy [] Anemia due to chemotherapy or radiation therapy [] Anemia of Chronic Disease, please specify: [] [] Other, please indicate type of anemia []____ [] If Unable to Determine, please check the box, sign and date. Present On Admission (POA) Indicator: [x] Present at the time of admission [] Not present at the time of admission [] Clinically Undetermined In responding to this query, please exercise your independent professional judgment. The fact that a question is asked does not imply that any particular answer is desired or expected. Thank you for your clarification on this documentation. If you have any questions please call:[ ] * Thank you, [ ]David Nagy [facility] #[id number] rubber cutting machine tender ARIA
[2017-03-06] MEDS: Enoxaparin 30 mg Syringe SC SCH (09:39)
--- NOTE | 2017-03-06 12:50 | PN ---
DATE: 03/06/2017 REASON FOR THE CONSULTATION: Postop followup hip fracture. SUBJECTIVE: The patient is sitting on the bed, denies any chest pain, shortness of breath, or any palpitations. OBJECTIVE: GENERAL: Sitting comfortably, not in any distress. VITAL SIGNS: Temperature afebrile, heart rate 84, blood pressure 141/59. HEENT: PERRLA. Extraocular muscles intact. NECK: Supple. No carotid bruit. No thyromegaly. CARDIOPULMONARY: S1 and S2, regular. LUNGS: Clear to auscultation. ABDOMEN: Soft, EXTREMITIES: Clubbing and cyanosis negative. LABORATORY DATA: Blood workup as follows; WBC 8.5, hemoglobin 10.9, hematocrit 32.8, platelet count 242. CHEMISTRY: Shows sodium 141,potassium 3.8, chloride 103, carbon dioxide 31, anion gap of 11, BUN 15, creatinine 0.6, total bilirubin 1.1, AST 43, ALT 43, alk phos 67, total protein 6.3, albumin 2.3, albumin/globulin ratio 0.9. IMPRESSION: Status post fall, status post hip fracture, status post open reduction and internal fixation, postop anemia, status post packed red blood cells transfusion. Hemoglobin and hematocrit is stable, history of hypertension. RECOMMENDATION: The patient is off from one-to-one observation, psychiatrist note and notes reviewed, waiting for the placement for evaluating for replacement of her rehab facility. Continue rehab. The patient refused echo, does want echo to be done. I think heart is okay and that does not change from before recommendation. Continue amlodipine, continue DVT prophylaxis, continue metoprolol 12.5 mg twice a day and we will increase metoprolol to 25 mg b.i.d. because of the blood pressure is on the systolic is going above 140. We will follow it. the patient is stable from the cardiology point of view. Thank you Dr. Fraser in taking care of the patient Ms. Gabriela Lynch. Raymon Carpio MD
--- NOTE | 2017-03-06 15:01 | PN ---
SUBJECTIVE: The patient was followed up today. In short, the patient is an 86-year-old female with not known previous psychiatric history. The patient was admitted on the medical/surgical floor for evaluation of hip fracture. The patient had surgery done last week, on . This residential mortgage underwriter got involved into the patient care because of possible suicidal ideations as well as possible depressive symptoms. Please see my previous notes for more detailed information. The patient was followed up today. The patient said that she did not have a good night sleep because of the pain in her right hip, but the patient reported that she had good morning. This residential mortgage underwriter gave the patient assignment about topic to discuss. The patient wanted to discuss love. The patient said that love is used very commonly now and in before days if a person said that he loved someone, it is commitment for the whole life. The patient said that she went through the different stages in her life. Right now, she feels that her family is there for her, and she feels that she is more optimistic in regards to her recovery. She made it clear that "there is no doubt that I will improve" but the patient has some concerns about inability to have full life as it was before. When this residential mortgage underwriter asked the patient what full life she had before, she said that she went to [place] at least 7 times a month, at least she could see a couple of movies a month. Also, the patient said that she was able to have lunch with her friends in [place] and right now she is not sure if she will be independent again. At the same time, the patient said that she is financially independent, and she can use not public transportation but taxi to go to [place], and she has hopes that she will be able to do that again. At the same time, the patient said that "little thing could make me feel very happy, for example jolie day or enjoying reading some books." The patient said that she has hopes that she will continue enjoying things. At the same time, the patient complained of insomnia and the patient made it clear if she will be not independent back again or if she will be burden for her family, she would think to end up her life, but at the same time, this residential mortgage underwriter cannot exclude that the patient will gain her independence back. This residential mortgage underwriter discussed the case with nursing staff. As per nursing report, the patient has good appetite. The patient does not express any thoughts of harming herself. The patient is participating in treatment. Does not give any problems in order to take care of the patient from the medical side. The patient does not want this residential mortgage underwriter to disclose any information to the patient's family. The patient son, Perez seems to be very involved into the patient's care. Perez expressed concerns about the patient's safety, but at the same time, Perez said that he does not feel that his mother will try to harm herself at present moment. Perez also said that she did not try to harm herself in the past. Phone number for Perez is [phone]. PHYSICAL EXAMINATION: VITAL SIGNS: Revived. Temperature 98, pulse of 84, blood pressure 141/59, respirations 18, oxygen saturation is 95%. MEDICATIONS: Reviewed. Tylenol, Norvasc, Benadryl, Lovenox, . This residential mortgage underwriter would like to implement Remeron 7.5 mg at the nighttime for mood symptoms as well as for insomnia. This residential mortgage underwriter educated the patient about this plan. Risks, benefits and alternatives of the medications were discussed with the patient. MENTAL STATUS EXAMINATION: The patient appears to be alert, oriented, pleasant and cooperative. Fair eye contact. Speech was normal rate, tone, quality, and quantity. Mood described, "I am not depressed." Affect was reactive. Mood congruent. Thought process was coherent and goal directed. Thought content, the patient denied visual, auditory, or tactile hallucinations. Denies paranoid ideations. The patient denied any thoughts of harming herself or others at the moment of the interview, but the patient made it clear that in case if she will be burden for her family, she would consider to kill herself. Insight and judgement are improving. Impulses are well controlled. IMPRESSION: Rule out adjustment disorder, rule out major depressive disorder. The patient is status post hip surgery. The patient has celiac disease. PLAN: This residential mortgage underwriter had prolonged conversation with nurse practitioner as well as nursing staff as well as primary care physician, Dr. Aaron Fraser. Incase if the patient will go to subacute rehab, the patient needs to be evaluated by psychiatrist in the facility. emergency service worker, caser up as well as nurse practitioner were educated to provide this residential mortgage underwriter with the phone number of psychiatrist in the facility. If the patient will go to subacute rehab, this residential mortgage underwriter would prefer to have one-to-one conversation with psychiatrist because the patient made it clear if she will be not independent back again, she would like to kill herself with carbon monoxide. At the same time, the patient contracted for safety. The patient said you have my word, I will not kill myself anytime now while I am in the hospital or in subacute rehab, but at the time of discharge from subacute rehab, the patient needs to be reevaluated by psychiatrist or brought back to the hospital for further evaluation and stabilization. In case if the patient will go to subacute rehab, this residential mortgage underwriter will follow up on this patient on daily basis in order to monitor her mental status and in order to make sure that the patient is not suicidal. If the patient will continue verbalizing thoughts of harming herself after discharge, this residential mortgage underwriter will initiate the screening process from the TCU unit. For now, the patient will be started on Remeron 7.5 mg at the nighttime and this residential mortgage underwriter cannot exclude that if the patient will be doing better from the medical standpoint if she will do a physical therapy here in the hospital or in subacute rehab, the patient will be not suicidal. Case was discussed in detail with Dr. Fraser as well as nursing staff as well as with nurse practitioner. The patient is off one-to-one. The patient is not psychotic, pleasant, cooperative, participating in treatment plan. Thank you very much for letting me to participate in the care of your patient. Should you have any questions, give me a call back. Christina Dyer MD
[2017-03-06 20:29] VITALS: RESP 20
[2017-03-07] MEDS: Enoxaparin 30 mg Syringe SC SCH (10:45)
--- NOTE | 2017-03-07 12:53 | PN ---
DATE: 03/06/2017 REASON FOR CONSULTATION: Postop followup hip fracture. SUBJECTIVE: The patient is sitting in the bed, denies any chest pain, shortness of breath, or any palpitations. PHYSICAL EXAMINATION GENERAL: Sitting comfortably in the bed, not in apparent distress. VITAL SIGNS: Temperature afebrile, heart rate 95, blood pressure 127/58. HEENT: PERRLA. Extraocular muscles intact. NECK: Supple. No carotid bruit. No thyromegaly. CARDIOPULMONARY: S1 and S2, regular. LUNGS: Clear to auscultation. ABDOMEN: Soft. EXTREMITIES: Clubbing and cyanosis negative. LABORATORY DATA: Blood workup as follows as of 03/06/2017, WBC 8.5, hemoglobin 10.9, hematocrit 32.8, platelet count 242. Chemistry shows a sodium 141, potassium 3.8, chloride 103, carbon dioxide 31, anion gap of 11, BUN 15, creatinine 0.6. IMPRESSION: Status post fall, status post hip fracture, status post open reduction internal fixation, hypertension, refused echo, suicidal ideation, being followed by psychiatrist. RECOMMENDATIONS: Continue rehab. Continue amlodipine. Continue low dose of beta nakia. Continue ferrous sulfate and multivitamin. The patient is stable from cardiology point of view. Being worked up for suicidal ideation and patient has one-to-one followup psychiatrist recommendation. The patient refused echo. CVS status is stable, cleared to be discharged from cardiology point of view. We will add multivitamin. Raymon Carpio MD
--- NOTE | 2017-03-07 13:01 | PN ---
DATE: 03/06/2017 The patient seen this Sunday morning in room 560, bed 1. She is sitting on the bed, comfortable, walked with physical therapy to the door and back to the bed. She seems to be much more improved, less focused on ending her life. She seems to be able report a hopeful view looking into future. looking to get better and walk. I am still concerned as she is quite intelligent and knows how to say what we may be looking for her to say. Therefore, my optimism is extremely cautious. I met with Dr. Vasquez and we had a long talk about her psychiatric state and both have our concerns. The one-to-one monitor was discontinued. We will need to watch her for some 24-48 hours before considering transfer to the subacute rehab facility. The patient and psychiatrist have developed a good rapor. I myself both have known the patient for many years. I have concerns about her mental health in view of her long history of celiac disease and chronic diarrhea, it is my feeling that she would be best in the transitional care unit here at [facility] because that will allow followup from me as well as the psychiatrist with whom the patient has developed a rapport and the orthopedist who repaired her fractured hip. I spoke with hospital administration. Dr. Pike came to meet with me and see the patient and we will assist in efforts at moving her to the transitional care unit at [facility] for up to 8 days of additional physical therapy. Since today is day 6 postoperative, that will bring us to 14 days postsurgical repair of the fracture and at that time, she should be ready for discharge to home for close psychiatric medical and orthopedic followup from people that know her best. Aaron Fraser MD ARIA
--- NOTE | 2017-03-07 16:09 | CP.PCM.PCO ---
Physician Communication Note - Physician Communication Note Physician Communication Note: pt refused to speak to this scientific technical writer today, discussed with PMD
[2017-03-07 17:29] VITALS: PULSE 90; TEMP 99.4; O2SAT 96
[2017-03-07 18:19] VITALS: BP 101/54
[2017-03-08] MEDS ORDERED: Multivitamin Therapeutic Tab PO SCH (08:00)
== END 2017-03-07 19:47 | DRG 481 ==
LOC: ED 11:27 → ERH 15:58 → 5RNO 19:55
PROVIDERS: ADMIT Internal Medicine; ATTEND Internal Medicine
PROC: 0QS604Z Reposition Right Upper Femur with Internal Fixation Device, Open Approach (ICD-10-PCS; principal; 2017-03-01 07:30)
PROC: 30233N1 Transfusion of Nonautologous Red Blood Cells into Peripheral Vein, Percutaneous Approach (ICD-10-PCS; 2017-03-03)
DX: S72.141A Displaced intertrochanteric fracture of right femur, initial encounter for closed fracture (principal); D62 Acute posthemorrhagic anemia; I10 Essential (primary) hypertension; R45.851 Suicidal ideations; J31.0 Chronic rhinitis; F43.20 Adjustment disorder, unspecified; K90.0 Celiac disease; F32.9 Major depressive disorder, single episode, unspecified; G47.00 Insomnia, unspecified; W01.0XXA Fall on same level from slipping, tripping and stumbling without subsequent striking against object, initial encounter; M48.54XD Collapsed vertebra, not elsewhere classified, thoracic region, subsequent encounter for fracture with routine healing; Z86.73 Personal history of transient ischemic attack (TIA), and cerebral infarction without residual deficits; Y93.01 Activity, walking, marching and hiking; Y92.89 Other specified places as the place of occurrence of the external cause; Y99.8 Other external cause status

== ENCOUNTER 2017-03-07 19:47 | Inpatient (IN) | payer OTHER, MEDICARE ==
[2017-03-07] MEDS ORDERED: Pneumococcal 23-Valent Vaccine IM ONE (22:32)
[2017-03-08] MEDS: Enoxaparin 30 mg Syringe SC SCH (05:24)
[2017-03-08] MEDS: Multivitamin Therapeutic Tab PO SCH (08:10)
--- NOTE | 2017-03-08 15:35 | CON ---
DATE: 03/08/2017 The patient is a female, 86-year-old. REASON FOR CONSULTATION: Continuity of the care in transitional care unit. BRIEF CLINICAL HISTORY: This is an 86-year-old female with past medical history significant for hypertension, admitted initially on 02/28/2017 after a fall and sustained fracture of the hip, is status post OR internal fixation. Now, the patient is in transitional care unit for continuity of the care. Denies any chest pain, shortness of breath, or any palpitation. PAST MEDICAL HISTORY: Significant for status post fall, status post fracture of hip, status post OR internal fixation on 03/02/2017. History of hypertension. No documented history of coronary artery disease. SOCIAL HISTORY: Denies tobacco. Denies any history of alcohol abuse. CURRENT MEDICATIONS: The patient is taking Benadryl, ferrous sulfate, metoprolol tartrate 25 mg twice, DVT prophylaxis, Lovenox 30, amlodipine 5 mg daily, Remeron 7.5, vitamin, acetaminophen, and Zofran. ALLERGIES: EGG DRY FOOD AND CHICKEN DRY FOOD, GETS ANAPHYLACTIC. REVIEW OF SYSTEMS: As per HPI. PHYSICAL EXAMINATION VITAL SIGNS: Temperature afebrile, heart rate 101, blood pressure 142/61. HEENT: PERRLA. EOMs intact. NECK: Supple. No carotid bruit. No thyromegaly. CHEST: Clear to auscultation. HEART: S1 and S2, regular. ABDOMEN: Soft. EXTREMITIES: Clubbing and cyanosis negative. LABORATORY DATA: Blood workup as follows; WBC 0.5, hemoglobin 10.9, hematocrit 32.8, platelet count 242. Chemistry shows sodium of 141, potassium 3.8, chloride 103, carbon dioxide of 31, anion gap of 11, BUN of 15, and creatinine 0.6. IMPRESSION: Status post fall, status post open reduction and internal fixation, status post operative room for internal fixation, postoperative anemia, status post packed red blood cell transfusion, hypokalemia, hypertension. At one point, the patient had suicidal ideation, now has improved. RECOMMENDATIONS: Continue aspirin, continue DVT prophylaxis, continue metoprolol at 25 mg, continue amlodipine, continue ferrous sulfate. The patient wanted me to see her because she said that her heart is good and if she needs, we will call us back, so we will sign off and would like to follow p.r.n. The patient echo was requested, but the patient refused and she thinks the heart is good, does not want any further testing. We will sign off and would like to follow p.r.n. Thank you Dr. Fraser for providing the opportunity in taking care of the patient. Raymon Carpio MD cc: Dr. Fraser
--- NOTE | 2017-03-08 15:36 | CP.PCM.PCO ---
Physician Communication Note - Physician Communication Note Physician Communication Note: pt refues to talk to this story writer, d/w RN, no behavioral issues, will increa Addendum Addendum: 03/08/17 15:34 pt refused to speak to this story writer, seems to be angry with her for unknown reason pt denied SI to the medical staff coordinator but will keep seeing pt on daily basis pt's two sons next to the pt plan will f/u on pt daily pt is not psychiatrically cleared this story writer will screen pt at the day of d/c from the TCU most likely pt needs involuntary commitment
[2017-03-09] MEDS: Enoxaparin 30 mg Syringe SC SCH (07:43)
[2017-03-09] MEDS: Multivitamin Therapeutic Tab PO SCH (08:44)
[2017-03-09] MEDS ORDERED: Oxycodone/Acetaminophen 5/325 mg Tab PO STA (09:45)
--- NOTE | 2017-03-09 15:14 | CP.PCM.PCO ---
Addendum Addendum: 03/09/17 15:11 pt refused to speak to this check writer again said "there is nothing to discuss with you", when this check writer let pt know that psychiatry team will f/u on her, pt said "It is your choice", then staid quiet. as per RN report pt denied thoughts of harming self or others, participates in tx plan. Plan: will continue current management will continue remeron 15mghs will call [facility] for screening when pt will be medically stable will keep monitoring
[2017-03-09 18:15] LABS: URINE APPEARANCE CLEAR (CLEAR); URINE BILIRUBIN NEGATIVE (NEGATIVE); URINE BLOOD NEGATIVE (NEGATIVE); URINE COLOR YELLOW (YELLOW); URINE GLUCOSE (UA) NEGATIVE (NEGATIVE); URINE LEUKOCYTE ESTERASE NEGATIVE Leu/uL (NEGATIVE); URINE NITRATE NEGATIVE (NEGATIVE); URINE PROTEIN NEGATIVE mg/dL (<30 mg/dL); URINE UROBILINOGEN 0.2 E.U./dL (<1 E.U./dL)
[2017-03-10] MEDS: Oxycodone/Acetaminophen 5/325 mg Tab PO PRN ×3 (02:29→21:34)
[2017-03-10] MEDS: Enoxaparin 30 mg Syringe SC SCH (05:46)
[2017-03-10] MEDS: Multivitamin Therapeutic Tab PO SCH (08:01)
[2017-03-10 15:20] LABS: URINE BILIRUBIN NEGATIVE (NEGATIVE); URINE BLOOD NEGATIVE (NEGATIVE); URINE GLUCOSE (UA) NEGATIVE (NEGATIVE); URINE LEUKOCYTE ESTERASE NEGATIVE Leu/uL (NEGATIVE); URINE NITRATE NEGATIVE (NEGATIVE); URINE PROTEIN TRACE mg/dL (<30 mg/dL); URINE UROBILINOGEN 0.2 E.U./dL (<1 E.U./dL)
[2017-03-10 15:35] LABS: URINE APPEARANCE CLEAR (CLEAR); URINE COLOR YELLOW (YELLOW)
[2017-03-10 15:42] LABS: URINE BACTERIA FEW (NEG); URINE EPITHELIAL CELLS 0 - 2 /hpf (0-5); URINE RBC NEGATIVE /hpf (0-2); URINE WBC 0 - 2 /hpf (0-6)
--- NOTE | 2017-03-10 16:17 | RAD ---
PROCEDURE: Right ribs HISTORY: exquisite pain COMPARISON: TECHNIQUE: Four views FINDINGS: There is no evidence of rib fracture or pneumothorax. IMPRESSION: Negative study
--- NOTE | 2017-03-10 16:21 | RAD ---
PROCEDURE: Radiographs of the Lumbar Spine. HISTORY: right flank pain COMPARISON: No prior. FINDINGS: BONES: There is a mild compression deformity of T11 that is probably chronic. DISC SPACES: Unremarkable. OTHER FINDINGS: None. IMPRESSION: No acute findings
--- NOTE | 2017-03-10 16:23 | RAD ---
HISTORY: Right flank pain COMPARISON: No prior. FINDINGS: BONES: There is a chronic appearing T11 compression fracture. There is bony demineralization DISC SPACES: Normal. SOFT TISSUES: Normal. OTHER FINDINGS: None. IMPRESSION: No acute finding
--- NOTE | 2017-03-10 22:18 | CON ---
DATE: 03/10/2017 HISTORY OF PRESENT ILLNESS: The patient is an 86-year-old female with no prior psychiatric history who has been followed by Psychiatry while being treated for her hip fracture because she has expressed suicidal thoughts. I reviewed recent notes and communication reports by Dr. Dyer and apparently the patient has been very resistant to discussing her symptoms on the unit with Psychiatry and this provider had accounted this resistance during my visits with her last weekend. This morning, I visited with her at bedside and she continues to be well oriented to circumstances, month, year, and location. She continues to indicate that she is "ready to go" and she finds no reason to live because she suffering. She is quite adamant that she will not try to harm herself on the unit, however, is considering "ending it all" after she is discharged. The patient reports that she is frustrated as people cannot understand her feelings at this time. However, she indicates that she has always talked to herself that when the time has come to end it off, she will end it and feels that the time may come after she is discharged because she has fallen three times already and she does not want to fall again. She denies depression. She states she needs to live a long life and she does not feel like there is any *------*, and her responses are relevant to question. Her insight and judgement are poor. Vital signs and labs were reviewed by this provider. MEDICATIONS: Relevant psychiatric medications include Benadryl 25 mg bedtime p.r.n. and Remeron 15 mg bedtime scheduled. IMPRESSION: Adjustment disorder. Rule out major depressive disorder. Rule out mood disorder secondary to general medical condition. RECOMMENDATIONS: We will continue with current treatment and plan and the patient is very resistant to psychiatric intervention at this time. We will continue to illicit her cooperation. I agree with Dr. Dyer in that the patient should be referred for screening once she is medically cleared. She is not psychiatrically cleared for discharge, *------* (but she should be) medically cleared. Alberto Vee MD
[2017-03-11] MEDS: Enoxaparin 30 mg Syringe SC SCH (05:26)
[2017-03-11] MEDS: Multivitamin Therapeutic Tab PO SCH (08:55)
--- NOTE | 2017-03-11 10:14 | PN ---
DATE: 03/11/2017 ORTHOPEDIC FOLLOWUP REPORT The patient underwent open reduction internal fixation of a right hip fracture on 03/01/2017, approximately well over a week old. The wound looks good, dry. We put a new dressing on. She has no undue hip pain, moves her hip in bed well and has been getting up out of bed. We will continue to perform physical therapy for ambulation with a walker, weightbearing to tolerance. 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 So, continue therapy and consider back pain for much of the origin needs to be moving more. I planned to take the sutures out next week and we will repeat the x ray of the hip then. Narendra Senior DO [facility]ie
--- NOTE | 2017-03-11 12:57 | US ---
PROCEDURE: Ultrasound of the Kidneys HISTORY: right flank pain r/o renal calculi COMPARISON: None available. TECHNIQUE: Sonogram of the kidneys. FINDINGS: RIGHT KIDNEY: Measures: 10 cm. Unremarkable in echogenicity. Midpole 0.8 cm cyst. No shadowing renal stone or hydronephrosis is identified. LEFT KIDNEY: Measures: 10.7 cm. Unremarkable in echogenicity. Upper pole 1.2 cm cyst. No shadowing renal stone or hydronephrosis is identified. OTHER FINDINGS: None IMPRESSION: Bilateral renal cysts as above.
--- NOTE | 2017-03-11 12:59 | US ---
PROCEDURE: Ultrasound of the Bladder HISTORY: right flank pain r/o renal calculi COMPARISON: None available. TECHNIQUE: Sonographic evaluation of the bladder was performed. FINDINGS: Urinary bladder is incompletely distended and appears Unremarkable without wall thickening or intraluminal debris. No calculus or gross mass lesion identified. No free fluid seen in the pelvis. Prevoid Volume: Patient voided before the exam. Post void residual: 59 cc. IMPRESSION: Incompletely distended urinary bladder with a postvoid residual. Please note patient voided prior to the examination.
--- NOTE | 2017-03-11 13:43 | CON ---
DATE: 03/11/2017 HISTORY OF PRESENT ILLNESS: The patient is an 86-year-old female, who for her psychiatric history has been followed by psychiatry, while being treated for hip fracture due to expression of suicidal thoughts. I reviewed recent notes and communication reports by Dr. Dyer and was at bedside yesterday and again this morning. The patient continues to be resistant to psychiatry and still reports feeling that there is no reason for her to continue with life, though she denies having any active suicidal thoughts on the unit. She indicated that she is "ready to go," and that she finds no reason to live because of the suffering associated with her hip pain. In the interim, she denies depression, and she states that she "looks back on her life with gabby," and her mood is "peaceful." Again, the patient denies having any thoughts to harm herself on the unit and has been cooperative with staff members thus far. In general, the patient is not overtly expressive or communicative with this provider and becomes clearly defensive and irritable questions her outlook at this time. Her insight and judgement are still considered to be poor. Vital signs and labs were reviewed by this provider. Medications, relevant psychiatric medications include Remeron 15 mg at bedtime. IMPRESSION: Adjustment disorder, rule out major depressive disorder, rule out mood disorder secondary to general medical condition. RECOMMENDATIONS: Psychiatry will continue with current treatment and plan. The patient is still very resistant to psychiatric intervention at this time regarding medical management or therapy. We will continue to elicit her cooperation, and I continue to agree with Dr. Dyer, and the patient should be referred for screening when she is medically cleared. As of today, she is still not psychiatrically cleared for discharge should she be medically cleared. Alberto Vee MD
[2017-03-12] MEDS: Enoxaparin 30 mg Syringe SC SCH (05:36)
[2017-03-12] MEDS: Multivitamin Therapeutic Tab PO SCH (08:18)
--- NOTE | 2017-03-12 19:34 | PN ---
HISTORY OF PRESENT ILLNESS: The patient is an 86-year-old female with not known previous psychiatric history. The patient was admitted status post fall on the medical side. The patient had open reduction and internal fixation of broken hip. Psych consult was called for evaluation of possible depressive symptoms and possible suicidal ideation. This administrative underwriter was following the patient since the last week. The patient refused to talk to this administrative underwriter whole week last week. The patient was followed up today. As per report, the patient did not have good weekend. The patient was demanding to be discharged against medical advice, was refusing to eat, was refusing medication and refusing to take medication. That is why Dr. Vee started the patient on one to one. The patient's son, Dayron Lynch, reports this administrative underwriter and reported over the weekend the patient was not doing so well, but at the same time, the patient does not have recollection what she was doing by then. This administrative underwriter attempted to speak to the patient. The patient reluctantly talked to this administrative underwriter and said that she is doing well. The patient said that she was not refusing physical therapy. The patient said that she did not refuse to participate in treatment plan and the patient does not have recollection of requesting to be discharged as soon as possible. Most likely, the patient was in delirium state. Maybe it is due to insomnia or pain or other medical reasons. The patient again was not happy with the fact that she was started on one-to-one. The patient said "end of the conversation, I don't want to talk anymore." The patient at times verbalized that her life is over and she just wants to close this book, but the patient did not verbalize any active thoughts of killing herself. This administrative underwriter would like to emphasize the fact that the patient is very intelligent and the patient was verbalizing thoughts of killing herself while she was on medical and surgical unit and since that time, the patient refused to talk to this administrative underwriter and full examination cannot be done because the patient is not participating in interview. PHYSICAL EXAMINATION: VITAL SIGNS: Reviewed. Temperature 98.9, pulse is 93, blood pressure 125/56, respirations 14, oxygen saturation is 96. MEDICATIONS: Reviewed. Tylenol, Norvasc, Benadryl, Lovenox, FeroSul, Lopressor. This administrative underwriter will increase the dose of Remeron to 30 mg at the nighttime in order to help with depression and insomnia, multivitamins, Zofran, and Percocet. LABORATORY DATA: Reviewed. Urine showed trace of protein. Microbiology showed Proteus mirabilis. MENTAL STATUS EXAMINATION: The patient appears to have very good personal hygiene today, seems to have shower. The patient had a haircut. Appearance is very good and pleasant, but the patient was refusing to participate in interview and full mental status examination is not possible at present moment. IMPRESSION: Rule out major depressive disorder, rule out mood disorder due to general medical condition. The patient is status post fall, status post open reduction and internal fixation of the broken hip. The patient was found to have compression fracture, old one. PLAN: Continue current management. The patient did not give permission to disclosing information to her family. The patient's two sons are actively participating in the patient's treatment. The patient's family is very concerned about the patient's presentation. Plan will be the same. They tried to increase the dose of Remeron. Physical therapy whenever will be cleared by medical team. We will initiate ____ [facility] screening process for involuntary commitment. Later on, nurse called this administrative underwriter and told the patient started to eat, the patient-s mood is much better, the patient was participating in physical therapy, did not express any thoughts of killing herself. This administrative underwriter will discontinue one-to-one during the daytime and we will observe the patient closely. If the patient needs to be on one-to-one, we can resume that later on. Thank you very much for letting me to participate in care of your patient. Should you have any questions, give me a call back. Christina Dyer MD
[2017-03-12] MEDS: Oxycodone/Acetaminophen 5/325 mg Tab PO PRN (21:45)
[2017-03-13] MEDS: Enoxaparin 30 mg Syringe SC SCH (05:50)
[2017-03-13] MEDS: Multivitamin Therapeutic Tab PO SCH (08:22)
--- NOTE | 2017-03-13 16:06 | PN ---
DATE: 03/12/2017 SUBJECTIVE: The patient is an 86-year-old female with a history positive for hypertension. In 2003, status post transient ischemic attack in [place]. In 2003, status post compression fracture of T10. In 10/2004, status post bilateral cataract surgery. In 2013, she tripped and fell fracturing her left wrist. In 12/2016, she tripped and fell suffering a fracture of her left zygoma. In 2015, she fractured her left index finger when it was caught in car door, which was surgically repaired and pins were removed in July . She was admitted on 02/28/2017, after tripping and falling on curb after parking her car and fracturing her hip. The hip was surgically repaired by Dr. Narendra Senior during her hospital stay. ALLERGIES: SHE IS KNOWN TO BE ALLERGIC TO [employer]. MEDICATIONS: At that time included Norvasc 5 mg, aspirin 81 mg and Singulair 10 mg. The patient did well following the surgery; however, she started to make statements that her quality of life has changed. She would no longer continue to make frequent trips to [facility] as she is accustomed to and without this quality of life, life is simply not worth living. She openly expressed plans to enter her closed garage and start the engine and end her life. She was seen by Dr. Vasquez, our psychiatrist, several times during her hospital stay. We were uncomfortable with discharging her to a subacute care facility. So on 03/07, she was transferred to the [facility] TCU, where she could be continue to be followed by Dr. Vasquez the psychiatrist as well as us. On CCU, she initially complained of pain and not wanting to complete physical therapy. She also decided to refuse talking with Dr. Vasquez. As per the patient's sons, this decision came out of her feeling of breach of confidentiality that the doctors and medical staff concerned with her were made aware of her suicide ideation and the patient was placed on one-to-one coverage while on the medical floor. When seeing today, the patient is in much better spirits. She did complete some physical therapy today. She also noted decreased pain in her hip and in her back. Over the past few days, she was complaining her sharp stabbing like pain over the right back and flank. X-ray showed the old compression fracture of T10 and T11. Urine was negative for blood. Renal or ureteral calculus were excluded from the diagnoses, and the patient said the pain was much more tolerable knowing where it was coming from. So at this point, the patient has been in TCU for 5 days. She is medically cleared for discharge. I feel strongly that she should be evaluated by psychiatry and considered admission to [facility] psychiatric unit for further treatment. Narendra Fraser MD
--- NOTE | 2017-03-14 05:36 | PN ---
DATE: 03/13/2017 SUBJECTIVE: The patient is seen this Sunday afternoon hour on transistional care unit in room 303, bed 1. She is sitting out of bed in chair comfortable eating lunch. I spoke with her son outside who felt she is felling much better. Later on the day I spoke with her other son Dayron who feels she is doing well, but has concerns. I confronted with the patient with her not talking to the psychiatrist Dr Vasquez. The patient feels she does not want to talk to psychiatric anymore. I explained to her that this evaluation is essential because of our worry about her threat to hurt herself. I spoke with her about the possibility of transfer to another hospital. At this time she is not ready to go home. She seems to understand, her sons were more understanding of these consequences. PHYSICAL EXAMINATION: GENERAL: The patient is awake and alert answered appropriately somewhat of a stronger affect. HEENT: Head and neck are unremarkable. Conjunctivae pink. CHEST: Clear. HEART: Regular. EXTREMITIES: No edema. IMPRESSION: Status post fall and fractured hip with adjustment reaction verses depression and her worsening suicidal ideation immediately after surgery. She is now 12-day postop, but there is concern about her safety as she voiced a plan to do harm to herself when getting home. The risk factors remained several days ago. I will leave it to the opinion of the psychiatrist and psychiatric evaluation form the [facility] for better assess this risk and apparently great strides were made over the last several days. Unfortunately, the patient had a set back with back pain and compression fracture noted on x-ray. Medically she is doing well, recovering clinically from her hip fracture, she is stable taking p.o. well with her gluten-free diet. We will follow with psychiatry service regarding her disposition and discharge plan. Aaron Fraser MD MTDD
[2017-03-14] MEDS: Enoxaparin 30 mg Syringe SC SCH (06:13)
[2017-03-14 07:15] VITALS: O2SAT 100
--- NOTE | 2017-03-14 08:40 | PN ---
PSYCHIATRIST: Dr. Anthony. SUBJECTIVE: Shortly, the patient is an 86-year-old female with not known previous psychiatric history. Initially, the patient was admitted on the surgical floor for evaluation of hip fracture. The patient had surgery on the right hip. During the hospitalization, the patient was verbalizing thoughts of killing of herself with the plan to poison herself with carbon monoxide. Please see this tag writer initial consultation note for more details information. This tag writer initiated Remeron for the nighttime. The patient was on one-to-one for two occasions because the patient was refusing to eat and was sabotaging treatment plan. The patient was refusing to talk to this tag writer for past week, but still the patient has suicidal ideations with the plan after discharge from the transitional care unit. She will go back home. She will turn her car on, put the music on and poison herself with carbon monoxide. The patient said that she is done with her life. She has no hopes for the future. The patient also is saying that she had all the blessing from her family to commit suicide, but it is not correct information. 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 It is not correct as well. Meanwhile, the patient said that she participate in treatment plan because she wants to pursue with her plan and does not want to in the hospital. She wants to in her way. The patient still refused to talk to this tag writer today because she sees this tag writer as last obstacle on her on her suicide plan. This tag writer talked to the nursing staff. From the medical standpoint, the patient will be queried either today or tomorrow. This tag writer gave a call to [facility]], gave [id number] report. This tag writer spoke to Dr. Duque in person and gave narrative report about patient's presentation. Nursing staff was educated to give a call to [facility]3] and initiate screening process. This tag writer had a chance to stick to the patient's two sons. The patient's two sons are very concerned about patient safety. The patient does not want this tag writer to disclose any information, but the patient family expressed highest concerns about patient safety. The patient son's phone number is Dayron Lynch, as well as the patient's sons both are visiting the patient on daily basis. PHYSICAL EXAMINATION: VITAL SIGNS: Stable. MEDICATIONS: Reviewed. The patient is compliant with the medication. MENTAL STATUS EXAMINATION: The patient does not want to talk to this tag writer, but based on the history most likely the patient is in depressed side and verbalized thoughts of killing of herself with plan of overdose on carbon monoxide. IMPRESSION: Rule out major depressive disorder. The patient is status post hip fracture and surgery. Other than that the patient seems to be healthy. PLAN: [facility]] screening process was initiated today. This tag writer has smoke to chief of the inpatient unit, Dr. Neto Dr. *------*, [id number] report. The patient is to be by [facility]3] and most likely, the patient required involuntary commitment. The patient would benefit from continued Remeron at the nighttime. Family should be contacted and nursing staff educated, whenever screeners come give a call to this tag writer and this tag writer would like to speak to screening person herself. The patient is not psychiatrically cleared for discharge. Should you have any questions give me a call back. Christina Dyer MD
[2017-03-14] MEDS: Multivitamin Therapeutic Tab PO SCH (08:56)
--- NOTE | 2017-03-14 09:18 | CP.PCM.PCO ---
Physician Communication Note - Physician Communication Note Physician Communication Note: correction to my dictation note, Plan: not Addendum Addendum: 03/14/17 09:17 correction to dictated note 03/13/17 Plan: not "smoke" but "spoke" to at [facility] and gave doctor-doctor report.
--- NOTE | 2017-03-14 12:50 | CP.PCM.PCO ---
Addendum Addendum: 03/14/17 11:46 pt was evaluated by [facility] 03/13/2017, was found to be NOT committable pt was verbalizing thoughts of harming self over the weekend of her admission -03/04 see notes for more detailed information pt refused to talk to this advertising writer since 03/07/17 this advertising writer attempted to speak to this pt on daily basis, but pt refused to speak to this advertising writer as per staff pt is participating in treatment plan, pt is compliant with medications, physical therapy and unit rules and regulations no signs of psychosis or any distress pt has good appetite and sleep no behavioral issues family involved, very supportive, pt's son Perez approached this advertising writer today, said that his mother (pt) is doing better, was appreciative, pt did not verbalize any thoughts of harming self anymore pt most likely needs [facility], SW needs to call this advertising writer back and let her know what [facility] pt was accepted and pt will need to be f/u with psychiatrist should you have any questions call me back 03/14/17 12:49
[2017-03-15] MEDS: Enoxaparin 30 mg Syringe SC SCH (05:30)
[2017-03-15] MEDS: Multivitamin Therapeutic Tab PO SCH (08:47)
[2017-03-15 10:26] VITALS: RESP 20; TEMP 98.2
--- NOTE | 2017-03-15 12:06 | CP.PCM.CON ---
History of Present Illness - History of Present Illness History of Present Illness: Shortly patient is 86 year old Female, not known previous psychiatric h/o, denied h/o suicidal attempts, denied h/o psychiatric admissions, pt was admitted to the medical/surgical unit s/p fall, found to have hip fracture, s/p surgery, initially psychiatric consult was called for evaluation of possible suicidal ideation, please see initial consult, 03/03-03/04, pt was refusing to talk to this health technical writer since 03/07/17. pt was evaluated by [facility] 03/13/17, was found to be not committable, was considered to be not in danger to self or others. this health technical writer was attempting to speak to this pt for the past week, but pt refused to speak to this health technical writer saying "there is nothing to discuss at present moment", finally today 03/15/17 pt was willing to speak to this health technical writer. pt was seen and examined today, pt presented to be alert and oriented, pleasant and cooperative, hygiene is very good, pt wears some make up on, has nice haircut, very elegant clothing. pt said that she refused to talk to this health technical writer because "there was nothing to talk about at that moment, I was not feeling well , now I feel better and I could talk to you", when this health technical writer asked about pt's suicidal statements (which she made about 8-9 days ago), pt said "you need to understand where I am coming from, I was NOT in right stage of mind, I was in pain and I was feeling that I would never be able to walk again, now I feel much better, I am walking, I am in acceptance stage of my limitations. I was overreacting back then", pt said that she still has hopes that she will be walking independently again, near future plans: "to finish my rehabilitation and start from there", pt said that she wants to go to [place] as she used to "but I will go not by bus, but I could call for a taxi, I am financially independent and I could afford it", pt also said that she has no GI problems so far (pt was stressed in the past about being not able to hold BM), "I have no problems with my stomach anymore". pt denied being depressed, denied thoughts of harming self or others, denied intent or plan. pt reported to have a good appetite and sleep (pt was in pain over night but now feels much better), denied feeling anxious. pt denied v/a/t hallucinations, denied paranoid ideation. pt was educated about risk/benefits and alternatives of Remeron, pt was appreciative, wants to continue it. based on the report from the nursing staff, PT staff, PCP pt is pleasant, cooperative, socially appropriate, pt did not verbalized thoughts of harming self or others, pt was having good appetite and sleep, was actively participating in treatment plan, no signs of depression, no signs of psychosis, no signs any of acute distress. pt's both sons (Leonel and Perez) were approaching this health technical writer on daily basis and based on their impression today "we have our mom back, she is going much better", were appreciative, had no concerns abut pt's safety. Pt gave permission to talk to the sons and disclose information, this health technical writer educated family and pt that she needs to be followed up by psychiatrist at [facility] or in the community, pt and family willing to do so, provided info about local psychiatrist Dr.Paul Sy/[facility]. phone conference took place today with , discussed case in details. d/w disease case manager Michelle, options: either [facility], or home with f/u outpatient psychiatrist. MSE: pt was alert, oriented, pleasant, good personal hygiene, good eye contact, speech was low volume, but normal rate/tone/quality and quantity, mood: "I feel much better, I am 360% better", affect was reactive, mood congruent, thought process is coherent and goal directed, thought content: denied v/a/t hallucinations, denied paranoid ideation, denied thoughts of harming self or others, denied intent or plan, pt also does not present to be psychotic, does not present to be depressed, I/J are improving, impulses: well controlled. Impression: r/o adjustment disorder with depressed mood r/o mood disorder due to a GMC overall pt improved. s/p hip surgery Plan: continue Remeron 30mg hs for depression d/w both of pt's sons, d/w , disease case manager, RN continue PT [facility] (would be ideal for PT and continuous care) vs Home (with PT) it is up to the medical and SW teams pt needs to be f/u with psychiatrist, provided with the phone number of , [facility] pt does not want to stay in the psychiatric inpatient unit for observation "I am not depressed, I want to continue therapy, I don't think I need it", [facility] screening service did not accept pt from this health technical writer perspective pt is not in imminent danger to self or others management of this case took more than 45 min thank you for letting me to participate in care of your pt, should you have any questions call me back, this health technical writer will sign off [facility] [phone] [facility] ([facility]) [phone] [facility] [phone]Paul Sy [phone] office opened after 2pm Past Patient History - Infectious Disease Hx of Infectious Diseases: None - Tetanus Immunizations Tetanus Immunization: Unknown - Past Social History Smoking Status: Never Smoked - CARDIAC Hx Hypertension: Yes - NEUROLOGICAL Hx Transient Ischemic Attacks (TIA): Yes - MUSCULOSKELETAL/RHEUMATOLOGICAL Hx Falls: Yes (3rd fall in 2 yrs) - GENITOURINARY/GYNECOLOGICAL Hx Reproductive Disorders: No - PSYCHIATRIC Hx Depression: No Hx Emotional Abuse: No Hx Physical Abuse: No - SURGICAL HISTORY Hx Surgeries: Yes - ANESTHESIA Hx Anesthesia Reactions: No Hx Malignant Hyperthermia: No Meds Allergies/Adverse Reactions: Allergies Allergy/AdvReac Type Severity Reaction Status Date / Time chicken derived Allergy ANAPHYLAXIS Verified 03/07/17 20:30 Egg Derived Allergy ANAPHYLAXIS Verified 03/07/17 20:30 - Medications Medications: Current Medications Acetaminophen (Tylenol 325mg Tab) 650 mg PO Q4H PRN; Protocol PRN Reason: Pain, Mild (1-3) Last Admin: 03/15/17 05:38 Dose: 650 mg Amlodipine Besylate (Norvasc) 5 mg PO DAILY WATSON PRN Reason: Protocol Last Admin: 03/15/17 10:18 Dose: 5 mg Diphenhydramine HCl (Benadryl) 25 mg PO HS PRN; Protocol PRN Reason: Insomnia Ferrous Sulfate (Feosol) 324 mg PO DAILY WATSON PRN Reason: Protocol Last Admin: 03/15/17 10:19 Dose: 324 mg Metoprolol Tartrate (Lopressor) 25 mg PO 0800,1700 WATSON PRN Reason: Protocol Last Admin: 03/15/17 08:47 Dose: 25 mg Mirtazapine (Remeron) 30 mg PO HS WATSON PRN Reason: Protocol Last Admin: 03/14/17 21:30 Dose: 30 mg Multivitamins (Thera Tab) 1 tab PO 0800 WATSON PRN Reason: Protocol Last Admin: 03/15/17 08:47 Dose: 1 tab Ondansetron HCl (Zofran Inj) 4 mg IVP ONCE PRN; Protocol PRN Reason: Nausea/Vomiting Tramadol HCl (Ultram) 50 mg PO Q8H PRN; Protocol PRN Reason: Pain, moderate (4-7) Last Admin: 03/15/17 00:08 Dose: 50 mg Results - Vital Signs Recent Vital Signs: Last Vital Signs Temp 98.2 F 03/15/17 10:26 Pulse 98 H 03/15/17 10:26 Resp 20 03/15/17 10:26 BP 132/62 03/15/17 10:26 Pulse Ox 100 03/15/17 10:26
[2017-03-15 17:38] VITALS: BP 144/66; PULSE 100
--- NOTE | 2017-03-16 10:05 | PROCN ---
DATE: 03/14/2017 LOCATION: Room 303, bed 1. The patient is 2 weeks postop right hip fracture where she underwent orif. All the wounds were dry. All the sutures were removed and placed in a dry dressing. The patient will be going to subacute rehab, and I could follow her there, and I will see her in the office in 6 weeks for another x-ray of her right hip. FINAL DIAGNOSES: Right hip fracture, operated on approximately 2 weeks ago. Narendra Senior DO MTDKallie
--- NOTE | 2017-03-16 17:15 | DS ---
HISTORY OF PRESENT ILLNESS: This is an 86-year-old woman I have known for many years with a history of hypertension and gluten enteropathy. She has done very well with her diet in recent years since the diagnosis of gluten and celiac disease was made. She had a fall approximately one year ago with fractured wrist. She fell and broke her left zygoma about 6 months ago and now she presented to the acute care facility of [facility] with a fall and fractured right hip. This hip was surgically repaired by Dr. Narendra Senior 2 weeks ago. Today, from medical and orthopedic standpoint she did very well. However, within the day after surgical repair of the hip, the patient had conversations with orthopedics and then with me regarding how she feels her active life is over. She will not be able to enjoy the quality of life that she had before. She was an active displayer, went out with friends, walked and rode voraciously and none of these things meant anything more to her. She voiced threat and formulated plan for ending her life and so psychiatry services were called. She remained in the acute care hospital with a one-to-one and then came to looking for rehab and physical therapy. This was difficult in view of threat of harm to herself, so it was felt that our best option for her to come to transitional care unit at [facility] where she can be followed by the orthopedist, myself, the student development advisor and the psychiatrist who she has come to know. This is a discharge summary for that stay 8-day stay in transitional care unit at the [facility]. While here the patient did well. She engaged in physical therapy, improved clinically and from the psychiatric standpoint improved quite nicely. Unfortunately, she had a setback of back pain. X-ray showed two compression fractures of indeterminate age. The pain subsided within a day or 2 and the patient's view of the future became much more optimistic. She is no longer felt to be a threat to herself. The psychiatric evaluation team from [facility] came to see her and felt she was not threat to herself and therefore did not qualify to be hospitalized against her will that is an involuntary commitment and so she was free for a discharge to subacute rehab. I spoke with the family, the two devoted sons one here in [place] and one who traveled in from [place] about their mother's condition. They were at bedside through much of the hospital stay. Quite surprised to see the turn of events. I offered them opportunity at home with physical therapy visiting nurse and several subacute facilities were sought after and the arrangements were made for her to transfer to [facility] in [place]. I spoke with the patient and her sons, and she was ready for discharge this afternoon. FINAL DISCHARGE DIAGNOSES: 1. Fractured hip. 2. Hypertension. 3. Celiac disease. 4. Adjustment reaction to traumatic injury. Aaron Fraser MD
== END 2017-03-15 18:08 | disposition home or self-care (01) | DRG 560 ==
LOC: TRCU 19:47
PROVIDERS: ADMIT Internal Medicine; ATTEND Internal Medicine
PROC: F07L6YZ Therapeutic Exercise Treatment of Musculoskeletal System - Lower Back / Lower Extremity using Other Equipment (ICD-10-PCS; 2017-03-09)
PROC: F07Z9FZ Gait Training/Functional Ambulation Treatment using Assistive, Adaptive, Supportive or Protective Equipment (ICD-10-PCS; principal; 2017-03-11)
PROC: F07Z8YZ Transfer Training Treatment using Other Equipment (ICD-10-PCS; 2017-03-12)
PROC: F08Z2FZ Grooming/Personal Hygiene Treatment using Assistive, Adaptive, Supportive or Protective Equipment (ICD-10-PCS; 2017-03-13)
DX: S72.001D Fracture of unspecified part of neck of right femur, subsequent encounter for closed fracture with routine healing (principal); R45.851 Suicidal ideations; M48.54XA Collapsed vertebra, not elsewhere classified, thoracic region, initial encounter for fracture; F43.21 Adjustment disorder with depressed mood; I10 Essential (primary) hypertension; M47.896 Other spondylosis, lumbar region; Z86.73 Personal history of transient ischemic attack (TIA), and cerebral infarction without residual deficits; W01.0XXD Fall on same level from slipping, tripping and stumbling without subsequent striking against object, subsequent encounter

== ENCOUNTER 2017-03-15 20:38 | Observation (INO) | payer MEDICARE ==
[2017-03-15 20:38] VITALS: BMI 19.1
--- NOTE | 2017-03-16 00:36 | ED PDOC ---
Arrival/HPI - General Chief Complaint: Hip Pain Time Seen by Provider: 03/15/17 21:19 Historian: Patient - History of Present Illness Narrative History of Present Illness (Text): 03/16/17 00:33 86-year-old female presents today with right hip pain. Patient with recent right hip surgery. Was discharged to rehabilitation facility today. Patient was unhappy with the situation at the rehabilitation facility and presents to the emergency room with continued pain with difficulty ambulating on her own. Patient denies chest pain or shortness of breath. Denies fevers or chills. Denies numbness weakness or tingling in the extremity. No bladder or bowel incontinence. Symptom Onset: Gradual Symptom Course: Improving Past Medical History - Provider Review Nursing Documentation Reviewed: Yes - Travel History Have you recently traveled outside [place] w/in the past 3 mons?: No - Infectious Disease Hx of Infectious Diseases: None - Tetanus Immunization Tetanus Immunization: Unknown - Cardiac Hx Cardiac Disorders: Yes Hx Hypertension: Yes - Pulmonary Hx Respiratory Disorders: No - Neurological Hx Neurological Disorder: Yes Hx Transient Ischemic Attacks (TIA): Yes - HEENT Hx HEENT Disorder: No - Renal Hx Renal Disorder: No - Endocrine/Metabolic Hx Endocrine Disorders: No - Hematological/Oncological Hx Blood Disorders: No - Integumentary Hx Dermatological Disorder: No - Musculoskeletal/Rheumatological Hx Musculoskeletal Disorders: Yes Hx Falls: Yes - Gastrointestinal Hx Gastrointestinal Disorders: No - Genitourinary/Gynecological Hx Genitourinary Disorders: No - Psychiatric Hx Psychophysiologic Disorder: No Hx Depression: No Hx Emotional Abuse: No Hx Physical Abuse: No Hx Substance Use: No - Surgical History Other/Comment: Right hip fracture repair - Anesthesia Hx Anesthesia: Yes Hx Anesthesia Reactions: No Hx Malignant Hyperthermia: No - Suicidal Assessment Feels Threatened In Home Enviroment: No Family/Social History - Physician Review Nursing Documentation Reviewed: Yes Family/Social History: Unknown Family HX Smoking Status: Former Smoker Hx Alcohol Use: No Hx Substance Use: No Allergies/Home Meds Allergies/Adverse Reactions: Allergies chicken derived Allergy (Verified 03/07/17 20:30) ANAPHYLAXIS Egg Derived Allergy (Verified 03/07/17 20:30) ANAPHYLAXIS Home Medications: Home Meds Medication Instructions Recorded Confirmed amLODIPine [Norvasc] 5 mg PO DAILY 03/26/16 03/15/17 Review of Systems - Review of Systems Constitutional: absent: Fatigue, Fevers Respiratory: absent: SOB, Cough Cardiovascular: absent: Chest Pain, Palpitations Gastrointestinal: absent: Abdominal Pain, Nausea, Vomiting Genitourinary Female: absent: Dysuria, Frequency, Hematuria Musculoskeletal: Arthralgias, Back Pain. absent: Neck Pain Skin: absent: Rash, Pruritis Neurological: absent: Headache, Dizziness Psychiatric: absent: Anxiety, Depression Physical Exam Vital Signs Reviewed: Yes Vital Signs Temp Pulse Resp BP Pulse Ox 03/16/17 01:15 98.0 F 89 16 98 03/15/17 21:32 98.5 F 89 20 125/65 97 Temperature: Afebrile Blood Pressure: Normal Pulse: Regular Respiratory Rate: Normal Appearance: Positive for: Well-Appearing, Non-Toxic, Comfortable Pain Distress: None Mental Status: Positive for: Alert and Oriented X 3 - Systems Exam Head: Present: Atraumatic Mouth: Present: Moist Mucous Membranes Respiratory/Chest: Present: Clear to Auscultation Cardiovascular: Present: Regular Rate and Rhythm Abdomen: No: Tenderness Back: Present: Normal Inspection Upper Extremity: Present: Normal Inspection, Normal ROM Lower Extremity: Present: Capillary Refill < 2 s, Other (Right hip: There are multiple healing incisions. One staple remains in place. No surrounding erythema or tenderness. No swelling or warmth.). No: Tenderness, Swelling, Erythema, Deformity Neurological: Present: GCS=15 Skin: Present: Warm, Dry, Normal Color Psychiatric: Present: Alert, Oriented x 3 Medical Decision Making ED Course and Treatment: 03/16/17 00:35 86-year-old female presents with right hip pain and difficulty ambulating Tylenol given for pain CBC: wnl CMP wnl Case discussed with Dr. Barajas in depth; will admit observational status for hip pain. consult dr. elena impression; hip pain, difficulty with ambulation observational status med/surg. - Lab Interpretations Lab Results: 03/16/17 00:25 03/16/17 00:25 Lab Results 03/16/17 00:25: WBC 10.9 D, RBC 3.58, Hgb 10.8 L, Hct 33.0 L, MCV 92.2, MCH 30.2, MCHC 32.7, RDW 13.9, Plt Count 530 H, MPV 8.8, Gran % 61.5, Lymph % (Auto ) 25.6, [place] % (Auto) 6.1 H, Eos % (Auto) 6.0 H, Baso % (Auto) 0.8, Gran # 6.71 H, Lymph # 2.8, [place] # 0.7 H, Eos # 0.7, Baso # 0.09 03/16/17 00:25: Sodium 139, Potassium 4.3, Chloride 100, Carbon Dioxide 29, Anion Gap 14, BUN 18, Creatinine 0.7, Est GFR ( Amer) > 60, Est GFR (Non- Af Amer) > 60, Random Glucose 111 H, Calcium 9.0, Total Bilirubin 0.4, AST 46 H , ALT 60 H, Alkaline Phosphatase 104, Total Protein 7.2, Albumin 3.3, Globulin 3.8, Albumin/Globulin Ratio 0.9 L - Medication Orders Current Medication Orders: Discontinued Medications Acetaminophen (Tylenol 325mg Tab) 650 mg PO STAT STA Stop: 03/15/17 23:15 Disposition/Present on Arrival - Present on Arrival Any Indicators Present on Arrival: No History of DVT/PE: No History of Uncontrolled Diabetes: No Urinary Catheter: No History of Decub. Ulcer: No History Surgical Site Infection Following: Orthopedic Procedures - Disposition Have Diagnosis and Disposition been Completed?: Yes Diagnosis: Hip pain Disposition: HOSPITALIZED Disposition Time: 00:36 Patient Plan: Observation Patient Problems: Current Active Problems Problem Status Onset Hip pain Acute Condition: FAIR
[2017-03-16 00:49] LABS: BASO # 0.09 K/mm3 (0.0-2.0); BASO % 0.8 % (0.0-3.0); EOS # 0.7 (0.0-0.7); GRAN # 6.71 (1.4-6.5); GRAN % 61.5 % (50.0-68.0); HEMOGLOBIN 10.8 g/dL (12.0-16.0); LYMPH # 2.8 (1.2-3.4); LYMPH % 25.6 % (22.0-35.0); MEAN CELL VOLUME 92.2 fl (80.0-105.0); MEAN CORPUSCULAR HEMOGLOBIN 30.2 pg (25.0-35.0); MEAN CORPUSCULAR HGB CONC 32.7 g/dl (31.0-37.0); MEAN PLATELET VOLUME 8.8 fl (7.0-11.0); MONO # 0.7 (0.1-0.6); MONO % 6.1 % (1.0-6.0); PLATELET COUNT 530 10^3/uL (120.0-450.0); RBC 3.58 10^6/uL (3.5-6.1); RED CELL DISTRIBUTION WIDTH 13.9 % (11.5-14.5); WHITE BLOOD COUNT 10.9 10^3/ul (4.5-11.0)
[2017-03-16 00:59] LABS: ALB/GLOB RATIO 0.9 (1.1-1.8); ALBUMIN 3.3 g/dL (3.0-4.8); ALT/SGPT 60 U/L (7-56); AST/SGOT 46 U/L (15-39); BLOOD UREA NITROGEN 18 mg/dL (7-21); GFR AFRICAN-AMERICAN > 60; GFR NON-AFRICAN AMERICAN > 60
[2017-03-16 05:24] VITALS: RESP 20
[2017-03-16 07:50] VITALS: TEMP 98.4; O2SAT 96
--- NOTE | 2017-03-16 09:46 | CP.PCM.PCO ---
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
[2017-03-16] MEDS ORDERED: Atropine-Diphenoxylate 0.025-2.5 mg Tab PO PRN (10:41)
--- NOTE | 2017-03-16 11:30 | RAD ---
PROCEDURE: Right Hip and pelvis Radiographs. HISTORY: PAIN COMPARISON: None. FINDINGS: BONES: There is internal fixation of a right intertrochanteric fracture. There is a compression screw and jannie. There is normal alignment. JOINTS: Normal. SOFT TISSUES: Normal. OTHER FINDINGS: None. IMPRESSION: Internal fixation right hip. No complicating factors
[2017-03-16 16:04] VITALS: BP 113/62; PULSE 100
--- NOTE | 2017-03-16 23:44 | HP ---
CHIEF COMPLAINT: Diarrhea, abdominal pain, back pain. HISTORY OF PRESENT ILLNESS: This is an 86-year-old woman who was recently hospitalized at [facility] with a fractured hip. Her case was complicated by an adjustment reaction with lost hope for future. She was seen by Psychology, not noted to be depressed, but rather suspected her sudden surprising change and outlook was related to the trauma of the unfortunate accident. She was seen by Psychiatry on a regular basis and went to the transitional care unit, evaluated by the screeners from [facility], found not to be suicidal or requiring involuntary commitment; therefore, she was discharged to a subacute rehab facility because although it was 14 days postop, she felt she still needed some time. She arrived at the subacute rehab facility, but was not comfortable with the surroundings. Her diet, I believe, had changed and she developed abdominal cramping and diarrhea by not adhering to a strict gluten-free diet. Back pain and hip pain worsened prompting her come to the emergency room. X-rays were done and IV fluids were given. The patient was admitted. PAST MEDICAL HISTORY: Significant for hypertension as noted above, fractured right wrist 1 year ago, fractured zygoma of the left cheek 6 months ago, celiac disease, and recent adjustment reaction after the hip fracture in 02/2017. CURRENT MEDICATIONS: Include metformin and Remeron. ALLERGIES: SHE IS ALLERGIC TO GLUTEN WITH GLUTEN ENTEROPATHY. SOCIAL HISTORY: She does not smoke or drink alcohol. PHYSICAL EXAMINATION GENERAL: The patient was seen in 571, bed 1 this Sunday morning with her sons, Dayron and Tom at the bedside. She had multiple episodes of watery stool and diarrhea today. HEAD AND NECK: Unremarkable. Conjunctivae are pink. Mucous membranes are dry. LUNGS: Clear. HEART: Regular, but not tachycardic. ABDOMEN: Diffusely tender. EXTREMITIES: She is status post right hip fracture and repair with tenderness as well as mid spine and lumbar spine tenderness. IMPRESSION: 1. Diarrhea. 2. Celiac disease. 3. Recent compression fracture. 4. Recent fall and hip fracture. 5. Hypertension. PLAN: The patient will be admitted for observation to the acute care facility at [facility]. I will put her back on a gluten-free diet, use Lomotil and another medicine to control the diarrhea. Analgesics for pain, orthopedic followup on the hip, would consider an MRI of the lumbar spine if the pain continue, would use Tramadol and Tylenol for pain control and check morning labs and follow closely. Aaron Fraser MD
--- NOTE | 2017-03-17 11:15 | CON ---
DATE: HISTORY OF PRESENT ILLNESS: The patient is an 86-year-old white female, who is recovering from a surgical repair of a fractured hip. I have been asked to offer a second opinion regarding this patient, who has been difficult to mange and interact with. I have reviewed the patient's case with Dr. Dyre, with social work, and I have reviewed records. The patient does not have a prior psychiatric history. Up until the time of her hip fracture, she has been a vibrant woman, active, often going to [place], enjoying museums and movies, and involved in other cultural activities. She was aware of the vibrancy of her life and her ability to engage/immerse in activities that she enjoyed. She now is having much difficulty in accepting that these for period of time, if she recuperates fully, her ambulatory abilities are diminished and will in turn diminish her ability to immerse herself in her valued live projects. SOCIAL HISTORY: She is a [place] of [place]. 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 She is at age 21 to her teenage renetta (with he being 8 years old than her) and he is being described as a "brilliant" mechanical integrity specialist. The marriage she had with him was good. He also had been a elementary school counselor. The couple had 2 sons. She does not have any grandsons. She has during the course of her treatment here, spoken about wanting to and even killing herself (by carbon monoxide poisoning in her garage). At one time, she stopped speaking/refused to speak with Dr. Dyer who was owing her supportive therapy during her hospital stay here. Concern over her led to an attempt to have the patient involuntarily committed, but this was rechecked in [facility] screeners. Yesterday, she was referred to [facility] for convalescence, but found this place to be "bedlam" and refused to stay there and thus came back here. We are now working on another more palatable site in [place]. The patient can be described as a "charming mule". She is having difficulty in accepting issues of aging and infirmity, but could not be looked upon as being actively suicidal at this juncture. She would benefit from speaking to somebody about her array of feelings and difficulty in adjusting to the vicissitudes of her life. Pharmacologically, she is being maintained on Remeron 30 mg at bedtime. LABORATORY DATA: CBC and differential showed lowered hemoglobin of 10.8 and hematocrit of 33.0. Biochemical profile showed slightly elevated AST of 46 and ALT of 60. I have discussed the results of my findings with social work. 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 PLAN: piece worker, Elvira Pisano was trying to arrange for supportive psychotherapeutic services at the rehabilitation facility, she will be going to presently. Lance Kulkarni MD/ PhD
== END 2017-03-16 17:30 ==
LOC: ED 20:38 → ERH 03-16 00:32 → 5RSO 03-16 02:08
PROVIDERS: ADMIT Internal Medicine; ATTEND Internal Medicine
DX: M25.551 Pain in right hip (principal); S72.001D Fracture of unspecified part of neck of right femur, subsequent encounter for closed fracture with routine healing; F43.29 Adjustment disorder with other symptoms; R26.2 Difficulty in walking, not elsewhere classified; I10 Essential (primary) hypertension; K90.0 Celiac disease; R19.7 Diarrhea, unspecified; Z91.018 Allergy to other foods

== ENCOUNTER 2018-04-30 08:19 | Inpatient (IN) | payer MEDICARE ==
[2018-04-30] MEDS ORDERED: Vancomycin 1 g Inj ONE ×2 (10:21→15:26)
[2018-04-30] MEDS ORDERED: Bupivacaine 0.5% Inj(30mL) ONE (10:22)
[2018-04-30] MEDS ORDERED: Bupivacaine Liposomal Inj 20 ml ONE (10:22)
[2018-04-30] MEDS ORDERED: Sodium Chloride 0.9% 40 ML IV ONE (10:22)
[2018-04-30] MEDS ORDERED: Heparin 10,000 Units/ml ONE (10:23)
[2018-04-30] MEDS ORDERED: Propofol 10 mg/ml Inj (20 ML) ONE (11:28)
[2018-04-30] MEDS ORDERED: Rocuronium 10 mg/ml (5 ml) ONE (12:06)
[2018-04-30] MEDS ORDERED: Neostigmine Methylsulfate 3mg/3ml Syringe IV ONE ×3 (12:07→14:58)
[2018-04-30] MEDS ORDERED: Morphine 4 mg/ml ISec ONE (14:19)
[2018-04-30] MEDS ORDERED: HYDROmorphone 0.5 mg/0.5 ml ISec IVP PRN ×2 (15:58→16:45)
[2018-04-30] MEDS ORDERED: HYDROmorphone 0.2 mg/ml (30ml) 30 ML IV PRN (16:00)
[2018-04-30] MEDS ORDERED: Lactated Ringer's 1,000 ML IV SCH (16:00)
[2018-04-30] MEDS ORDERED: Etomidate 20 mg/10ml Inj IV ONE (16:11)
[2018-04-30] MEDS ORDERED: oxyCODONE 5 mg Immediate Release Tab PO PRN (16:44)
[2018-04-30] MEDS ORDERED: oxyCODONE 10 mg Immediate Release Tab PO PRN (16:45)
[2018-04-30] MEDS ORDERED: Atropine-Diphenoxylate 0.025-2.5 mg Tab PO PRN (16:46)
--- NOTE | 2018-04-30 16:53 | PCM.SURG1 ---
Surgeon's Initial Post Op Note - Surgeon's Notes Surgeon: Birdie Whittaker MD Press Bucker: Benigno Rojas PA-C Type of Anesthesia: General Endo Anesthesia Administered By: Dr. Johnson Pre-Operative Diagnosis: R hip osteoarthritis Operative Findings: see full note Post-Operative Diagnosis: same Operation Performed: removal hardware right femoral neck fracture with right total hip replacement Specimen/Specimens Removed: none Estimated Blood Loss: EBL {In ML}: 200 Blood Products Given: N/A Drains Used: Wound Vac Post-Op Condition: Fair Date of Surgery/Procedure: 04/30/18 Time of Surgery/Procedure: 16:53
--- NOTE | 2018-04-30 18:05 | RAD ---
PROCEDURE: Right Hip Radiographs. HISTORY: s/p R KOFFI. pt in PACU COMPARISON: Right hip radiographs dated 12/06/2017. FINDINGS: BONES: Interval right hip arthroplasty JOINTS: Right hip arthroplasty SOFT TISSUES: Postsurgical changes OTHER FINDINGS: None. IMPRESSION: Status post right hip arthroplasty
--- NOTE | 2018-04-30 18:07 | RAD ---
Date of service: 04/30/2018 PROCEDURE: Right Femur Radiographs. HISTORY: s/p removal of hardware/THR COMPARISON: Right hip radiographs dated 12/06/2017 TECHNIQUE: AP and Lateral Radiographs of the right femur. FINDINGS: FEMUR: Interval removal of femoral intramedullary jannie and placement of arthroplasty stem. Tibial femoral compartment degenerative changes. SOFT TISSUES: Postsurgical changes OTHER FINDINGS: None. IMPRESSION: Interval removal of femoral intramedullary jnanie and placement of arthroplasty stem.
[2018-04-30 20:59] VITALS: BMI 22.4
[2018-04-30] MEDS ORDERED: Pneumococcal 23-Valent Vaccine IM ONE (20:59)
--- NOTE | 2018-05-01 03:16 | OP ---
PROCEDURE DATE: 04/30/2018 PREOPERATIVE DIAGNOSES: Symptomatic hardware of the right hip and right hip arthritis. POSTOPERATIVE DIAGNOSES: Symptomatic hardware of the right hip and right hip arthritis. PROCEDURE: Removal of right hip hardware deep and right total hip arthroplasty. SURGEON: Lino Whittaker MD COACH OPERATOR: Dr. Whittaker was assisted by Lore Beltran and Alhaji Quarles, the physician assistants. Both physician assistants were scrubbed and present throughout the entire case and assisted with patient positioning, making an incision in the extremity, retraction as well as wound closure. ANESTHESIA: General. COMPLICATIONS: None. ESTIMATED BLOOD LOSS: 250 mL. IMPLANT: Biomet total hip implant with a constrained liner. INDICATION FOR PROCEDURE: This is an 87-year-old female, approximately 2 years ago underwent open reduction and internal fixation of right hip fracture with an intramedullary nail. Postoperatively, patient had persistent pain. Clinically, patient had a loss of internal rotation motion with pain, pain with weightbearing and the right lower extremity was shorter than the left. Radiographically, patient was noted to have the intramedullary jannie with the hip screw. The hip screw was noted to protrude through the femoral head abutting the acetabulum. Patient has also significant deformity of the proximal femur and significant degenerative changes. Recommendations were for removal of the hardware and conversion to the right total hip arthroplasty. The risks, benefits and alternatives of the procedure were discussed with the patient including the possibility of fracture and hip instability as well as limb length discrepancy and informed consent was obtained. OPERATIVE PROCEDURE: After the surgical site was signed and verified in the preoperative holding area, the patient was taken to the operating room and placed supine on the operating room table. After administration of general anesthesia, patient received 2 g of Ancef IV. Vargas catheter was inserted. Patient was positioned in the lateral decubitus position with the right hip towards the ceiling. Venodyne boot was placed on the nonoperative extremity. Care was taken to make sure all bony prominences and nerves were well padded and protected and the right lower extremity was prepped and draped in usual sterile fashion. The bony landmarks were identified about the right hip and approximately 14 cm curvilinear incision was made over the proximal femur and pelvis. Soft tissues were dissected sharply down from the fascia. Fascia was incised and Charnley retractor was placed. At this point, the previous locking screw incision was reincised and the soft tissue was dissected sharply down from the mid shaft of the femur and the locking screw was removed. Next, the patient was noted to have significant heterotopic ossification and this was carefully removed to allow visualization in excess to the proximal aspect of the nail. Next, the screw locking holding the hip screw was loosened and this allowed us to remove the hip screw. Next, a slap hammer was then inserted and screwed into the end of the nail and the nail was disimpacted and removed from the femur. At this point, attention was directed to the femur and a femoral neck resection was performed. The head was passed off from the field as a specimen. Again, the patient was noted to have significant heterotopic bone around the previous fracture site and this was all removed using a rongeur and osteotome. At this point, an anterior capsulotomy was performed and the acetabulum was exposed. The acetabulum was reamed sequentially to allow for 54 prosthetic cup. Care was taken to maintain proper acetabular height inversion. Next, a trial cup was inserted and satisfied in good position. With the position the cup was removed and the hip was then pulse lavaged with antibiotic saline solution. The bony surfaces were dried and the actual cup was then impacted and placed again making sure to maintain proper height inversion. The cup was then further fixed using 3 screws in the superior and posterosuperior quadrant. At this point, attention was directed to the femur, medullary canal of the proximal femur was reamed and broached sequentially to allow for 11 mm press fit stent. Care was taken to maintain proper femoral version. At this point, with the trial stem in place the calcar was planed and trial neck and head was placed. Patient was noted to have approximately equal limb length and the hip was taken through the range of motion to assess stability. Decision at this point was made to place the constrained liner. Next, the trial head, neck, and stem were then removed and the hip was once again pulse lavaged. The actual constrained liner was then impacted into place. Next, the actual stem was then impacted again making sure to maintain proper version. The final lead of the actual head was then impacted over the stem and the hip was reduced taken through a range of motion, was noted to be stable at approximately equal limb length. At this point, capsule was repaired using #1 Vicryl suture. The short external rotators were also repaired using #1 Vicryl suture. The deep fascia was closed using #1 Vicryl suture. The subcutaneous tissue was closed using 0 Vicryl and 2-0 Vicryl suture and the skin was closed using cherelle. A CLARISSA incisional wound VAC dressing was applied and hip abduction pillow was placed. The patient was awakened from the procedure and taken to the recovery room in stable condition. Lino Whittaker MD
[2018-05-01 07:04] LABS: BLOOD UREA NITROGEN 13 mg/dL (7-21); CALCIUM 8.1 mg/dL (8.4-10.5); GFR NON-AFRICAN AMERICAN > 60
[2018-05-01 07:29] LABS: BASO # 0.04 K/mm3 (0.0-2.0); BASO % 0.4 % (0.0-3.0); GRAN # 6.25 (1.4-6.5); GRAN % 69.3 % (50.0-68.0); HEMOGLOBIN 9.3 g/dL (12.0-16.0); LYMPH # 1.8 (1.2-3.4); LYMPH % 20.2 % (22.0-35.0); MEAN CELL VOLUME 89.8 fl (80.0-105.0); MEAN CORPUSCULAR HEMOGLOBIN 29.6 pg (25.0-35.0); MEAN PLATELET VOLUME 9.8 fl (7.0-11.0); MONO # 0.9 (0.1-0.6); MONO % 10.1 % (1.0-6.0); RBC 3.14 10^6/uL (3.5-6.1); RED CELL DISTRIBUTION WIDTH 13.5 % (11.5-14.5)
--- NOTE | 2018-05-01 07:40 | CP.PCM.PN ---
Subjective - Date & Time of Evaluation Date of Evaluation: 05/01/18 Time of Evaluation: 07:38 - Subjective Subjective: Pt awake, alert. Adequate pain control. Afebrile, VSS R hip: dressing clean and dry NVI distally abduction pillow in place WBC 9 Hg 9.3 POD#1 ok to resume coumadin PT D/c planning to subacute rehab Objective - Vital Signs/Intake and Output Vital Signs (last 24 hours): Temp Pulse Resp BP Pulse Ox 97.6 F 80 16 112/48 L 98 04/30/18 20:46 04/30/18 20:46 04/30/18 20:46 04/30/18 20:46 04/30/18 20:46 Intake and Output: 05/01/18 05/01/18 06:59 18:59 Intake Total 120 Output Total 300 Balance -180 - Medications Medications: Current Medications Acetaminophen (Tylenol 325mg Tab) 650 mg PO Q6 [facility] Last Admin: 05/01/18 06:39 Dose: 650 mg Amlodipine Besylate (Norvasc) 5 mg PO DAILY [facility] Apixaban (Eliquis) 2.5 mg PO BID [facility]; Protocol Cholecalciferol (Vitamin D) 2,000 intlu PO DAILY [facility] Diphenoxylate HCl/Atropine (Lomotil 0.025-2.5 Mg Tablet) 1 tab PO PRN PRN PRN Reason: Diarrhea Docusate Sodium (Colace) 100 mg PO BID [facility] Hydromorphone HCl (Dilaudid) 0.5 mg IVP Q4H PRN PRN Reason: Pain, severe (8-10) Mirtazapine (Remeron) 30 mg PO HS [facility] Last Admin: 04/30/18 21:47 Dose: 30 mg Montelukast Sodium (Singulair) 10 mg PO DAILY [facility] Non-Formulary Medication (Beta-Carotene [Beta Carotene]) 25,000 iu PO DAILY [facility] Non-Formulary Medication (Vitamin B Complex/Vitamin C [Berocca]) 1 tab PO DAILY [facility] [id number] Ethyl Esters (Lovaza) 1 gm PO DAILY [facility] Oxycodone HCl (Oxycodone Immediate Release Tab) 5 mg PO Q4H PRN PRN Reason: Pain, Mild (1-3) Oxycodone HCl (Oxycodone Immediate Release Tab) 10 mg PO Q4H PRN PRN Reason: Pain, moderate (4-7) Sennosides (Senokot Tab) 17.2 mg PO HS [facility] Last Admin: 04/30/18 21:47 Dose: Not Given Vitamin E (Vitamin E 400 Units Cap) 800 intlu PO DAILY [facility] - Labs Labs: 05/01/18 06:15 05/01/18 06:15
[2018-05-01] MEDS ORDERED: HYDROmorphone 1 mg/ml ISec IVP PRN (09:17)
[2018-05-01] MEDS ORDERED: VITAMIN B COMPLEX PO SCH (10:00)
[2018-05-01] MEDS ORDERED: VITAMIN C PO SCH (10:00)
[2018-05-01] MEDS ORDERED: Multivitamin With Minerals Tab PO SCH (10:00)
--- NOTE | 2018-05-01 10:00 | CON ---
DATE: 05/01/2018 HISTORY OF PRESENT ILLNESS: The patient is an 87-year-old female, who was admitted to the [facility] to the care of Dr. Lino Whittaker for a total right hip replacement. The patient is status post fracture of the right hip in 02/2017 and after being evaluated by the orthopedist, it was decided best for her to have the hardware removed and a total right hip replaced. The patient is known to have a past medical history positive for celiac disease, hypertension. She is status post TIA in 2003. She is status post right wrist fracture in 2015, known to have a compression fracture in T10 since 2004. She fractured her left zygoma in a fall in 09/2016 and the above-mentioned right hip fracture in 02/2017. The patient has been doing well as an outpatient. MEDICATIONS: Included Norvasc 5 mg daily, Remeron 30 mg at bedtime, aspirin 81 mg daily. She also takes fish oil tablets, vitamin D, beta-carotene, vitamin E, B complex. She has a prescription for Singulair 10 mg to be taken daily as well as tramadol 1 tablet as needed for pain. ALLERGIES: THE PATIENT IS KNOWN TO BE ALLERGIC TO GLUTEN AND LACTOSE. PHYSICAL EXAMINATION: GENERAL: The patient is lying in bed. She is comfortable. She is status post hip surgery, which was done yesterday and she is feeling well. She only complains of pain when she moves. Her appetite is good. HEENT: Examination of the head, eyes, ears, nose and throat is unremarkable. NECK: Supple with no lymphadenopathy. No goiter. LUNGS: Clear to auscultation and percussion. HEART: Regular. No murmurs are appreciated. ABDOMEN: Soft, flat, nontender with no organomegaly. EXTREMITIES: Free of cyanosis, clubbing or edema. Dressing is intact status post right hip replacement. NEUROLOGICAL: The patient is awake, alert and oriented with no focal neurological signs. LABORATORY STUDIES: Show the white blood cell count to be 9, hemoglobin and hematocrit are 9.3 and 28.2 respectively, platelet count is 205. Sodium is 138, potassium 4.6, blood urea nitrogen 13, creatinine 0.7 and glucose is 128. Her blood pressure is 118/52 with a heart rate of 92. ASSESSMENT: We will encouraging getting out of bed and beginning physical therapy on her new hip later on today. From medical point of view, the patient is stable. We are continuing with her Shayy and Jacki and we will continue to follow the patient closely. Narendra Fraser MD
[2018-05-01] MEDS: Omega-3-Acid Ethyl Esters 1 GM Cap PO SCH (10:46)
[2018-05-01] MEDS: Cholecalciferol 1,000 INTLU TAB PO SCH (10:47)
[2018-05-01] MEDS: BETA CAROTENE PO SCH (10:49)
[2018-05-01] MEDS ORDERED: Sodium Chloride 0.9% 1,000 ML IV STA (11:33)
--- NOTE | 2018-05-01 12:04 | PCM.RRT ---
Addendum entered and electronically signed by Massimo Harris DO 05/01/18 14:25: Assessment of Findings&Treatment Plan Rapid response was called when patient was being walked by Physical therapy, and did not feel well, patient did not have a fall. Patient was immediately placed on the bed to sit. Vitals were taken, patient denied chest pain, SOB, fever, chills, dizziness. Patient did admit to some weakness and also stated she had 6 episodes of diarrhea yesterday and felt dehydrated. Patient recalled the whole incident and was doing and feeling better. Patient will be transferred to remote telemetry for further monitoring. EKG was done showing normal sinus rhythm. Troponins, CMP, and repeat labs ordered. Reached out to primary to update on patient status. Patient also started on fluids. Original Note: <Massimo Harris - Last Filed: 05/01/18 11:59> GREENHOUSE WORKER Nurse Assessment - Situation Date: 05/01/18 Time GREENHOUSE WORKER was called: 11:26 GREENHOUSE WORKER Responder Arrival Time: 11:28 GREENHOUSE WORKER Location:: [address] [place] [address] Room Number: 571-1 GREENHOUSE WORKER Reason for Call: Not Responding to Urgent Treatment GREENHOUSE WORKER Called By: Other Disciplines - IV IV Inserted during GREENHOUSE WORKER?: No - Respiratory Oxygen Delivery Method: Nasal Cannula @L/min Oxygen Flow Rate: 2 Received Nebulizer Treatments:: No Was the Patient Ventilated with Bag/Mask 100% O2?: No Secretions Suctioned?: No Was the Patient Intubated?: No Was the Patient Placed on a Ventilator?: No - Diagnostic Test Ordered EKG: Yes Chest X-Ray: No CPR started during GREENHOUSE WORKER?: No - Vital Signs Vital Sign: Rapid Response Vital Sign Blood Pressure 125/62 Pulse Rate 96 Respiratory Rate 20 Oxygen Saturation 99 - Finger Stick Blood Glucose Finger Stick Blood Glucose: 114 - Time GREENHOUSE WORKER Ended Time GREENHOUSE WORKER Ended: 11:35 - Vital Signs at end of GREENHOUSE WORKER Vital Signs at end of GREENHOUSE WORKER: Rapid Response End Vital Sign Blood Pressure 153/69 Pulse Rate 94 Respiratory Rate 20 Temperature 98.5 F O2 Sat by Pulse Oximetry 98 - Respiratory Oxygen Delivery Method: Nasal Cannula @L/min Oxygen Flow Rate: 2 - Constitutional Appears: Non-toxic, No Acute Distress - Head Head Exam: ATRAUMATIC, NORMAL INSPECTION, NORMOCEPHALIC - Eyes Eye Exam: EOMI, Normal appearance - Respiratory Exam Respiratory Exam: Clear to Ausculation Bilateral, NORMAL BREATHING PATTERN - Cardiovascular Exam Cardiovascular Exam: REGULAR RHYTHM, +S1, +S2. absent: Irregular Rhythm - GI/Abdominal Exam GI & Abdominal Exam: Soft. absent: Tenderness - Neurological Exam Neurological Exam: Alert, Awake, CN II-XII Intact, Oriented x3 - Extremities Exam Extremities Exam: absent: Pedal Edema Plan - Assessment of Findings&Treatment Plan Rapid response called when patient was attempting to wake and had a witnessed fall. Patient did not hit her head or lose consciousness. Vitals were taken, patient denies chest pain, SOB, fever, chills, dizziness. Patient did admit to some weakness and also stated she had 6 episodes of diarrhea yesterday and felt dehydrated. Patient recalled the whole incident and was doing and feeling better. Patient will be transferred to remote telemetry for further monitoring. EKG was done showing normal sinus rhythm. Troponins, CMP, and repeat labs ordered. Reached out to primary to update on patient status. Patient also started on fluids. <Kianna Jackson R - Last Filed: 05/05/18 07:46> GREENHOUSE WORKER Nurse Assessment - Vital Signs Vital Sign: Rapid Response Vital Sign Blood Pressure 125/62 Pulse Rate 96 Respiratory Rate 20 Oxygen Saturation 99 - Vital Signs at end of GREENHOUSE WORKER Vital Signs at end of GREENHOUSE WORKER: Rapid Response End Vital Sign Blood Pressure 153/69 Pulse Rate 94 Respiratory Rate 20 Temperature 98.5 F O2 Sat by Pulse Oximetry 98 Attending/Attestation - Attestation I have personally seen and examined this patient.: Yes I have fully participated in the care of the patient.: Yes I have reviewed all pertinent clinical information, including history, physical exam and plan: Yes Notes (Text): Patient seen and examined by me at 11:27 AM 05/01/18. Case discussed with resident. Agree with above with following additions/corrections. Rapid response was called at 11:26AM for lightheadedness and near syncope. Patient was having physical therapy when she started to feel lightheaded and asked to sit down. She was immediately placed on a chair. Patient was then transferred to bed. Patient states that she had approximately 6 episodes of diarrhea yesterday and thinks she may be dehydrated. Patient states she felt like she was going to pass out. Patient now feels better. Lightheadedness improved. Patient denies any chest pain or shortness of breath. No headaches or dizziness. No fevers or chills. No nausea, vomiting, or abdominal pain. No dysuria. Patient denies any diarrhea today. Physical exam: General: Awake and alert lying in bed in no acute distress HEENT: Normocephalic atraumatic. Pupils equal reactive. No scleral icterus. Oropharynx is pink and moist. No pharyngeal erythema or exudate appreciated. Neck is supple. Cardiovascular: Normal rhythm. Normal S1, S2. No murmurs, rubs or gallops appreciated Pulmonary: Normal respiratory effort. No rhonchi, rales or wheezing appreciated. Gastrointestinal: Soft, nondistended. Nontender. Positive bowel sounds all 4 quadrants, no guarding. Central nervous system: AAOx3 Musculoskeletal: Right hip dressing clean, dry, and intact. Assessment and plan: 1. Near syncope. Maybe secondary to dehydration. Patient will be started on IV fluids. Labs ordered. Primary care team being notified. 2. Right hip osteoarthritis. S/P right hip removal of hardware with right total hip replacement. Care as per primary team 3. Diarrhea. Patient denies any diarrhea today. Labs ordered. Care as per primary team Case was discussed in detail with patient and patient's nurse regarding current diagnosis and treatment plan.
[2018-05-01 12:42] LABS: BASO # 0.05 K/mm3 (0.0-2.0); BASO % 0.4 % (0.0-3.0); EOS # 0.1 (0.0-0.7); EOS % 0.8 % (1.5-5.0); GRAN # 9.7 (1.4-6.5); GRAN % 72.2 % (50.0-68.0); LYMPH # 2.7 (1.2-3.4); MEAN CELL VOLUME 90.2 fl (80.0-105.0); MEAN CORPUSCULAR HEMOGLOBIN 29.5 pg (25.0-35.0); MEAN CORPUSCULAR HGB CONC 32.7 g/dl (31.0-37.0); MEAN PLATELET VOLUME 8.5 fl (7.0-11.0); MONO # 0.9 (0.1-0.6); MONO % 6.6 % (1.0-6.0); RBC 3.05 10^6/uL (3.5-6.1); RED CELL DISTRIBUTION WIDTH 13.7 % (11.5-14.5); WHITE BLOOD COUNT 13.4 10^3/ul (4.5-11.0)
[2018-05-01 12:54] LABS: ALB/GLOB RATIO 1.1 (1.1-1.8); ALBUMIN 3.1 g/dL (3.0-4.8); ALT/SGPT 32 U/L (7-56); AST/SGOT 44 U/L (14-36); BLOOD UREA NITROGEN 13 mg/dL (7-21); CALCIUM 7.8 mg/dL (8.4-10.5); GFR NON-AFRICAN AMERICAN > 60
[2018-05-01 13:04] LABS: TROPONIN I 0.02 ng/mL
--- NOTE | 2018-05-01 16:21 | CARD ---
APPROVED REPORT Date of service: 05/01/2018 EKG Measurement Heart [id number] <Conclusion> Normal sinus rhythm Nonspecific ST and T wave abnormality LVH by voltage
[2018-05-02 06:28] LABS: BASO # 0.06 K/mm3 (0.0-2.0); BASO % 0.5 % (0.0-3.0); EOS # 0.1 (0.0-0.7); EOS % 0.9 % (1.5-5.0); GRAN # 8.21 (1.4-6.5); GRAN % 74.2 % (50.0-68.0); HEMOGLOBIN 8.3 g/dL (12.0-16.0); LYMPH # 1.8 (1.2-3.4); LYMPH % 16.3 % (22.0-35.0); MEAN CELL VOLUME 89.7 fl (80.0-105.0); MEAN CORPUSCULAR HEMOGLOBIN 29.4 pg (25.0-35.0); MEAN CORPUSCULAR HGB CONC 32.8 g/dl (31.0-37.0); MEAN PLATELET VOLUME 9.5 fl (7.0-11.0); MONO # 0.9 (0.1-0.6); MONO % 8.1 % (1.0-6.0); RBC 2.82 10^6/uL (3.5-6.1); RED CELL DISTRIBUTION WIDTH 13.6 % (11.5-14.5); WHITE BLOOD COUNT 11.1 10^3/ul (4.5-11.0)
[2018-05-02 06:40] LABS: BLOOD UREA NITROGEN 12 mg/dL (7-21); CALCIUM 8.3 mg/dL (8.4-10.5); GFR NON-AFRICAN AMERICAN > 60
[2018-05-02] MEDS: Omega-3-Acid Ethyl Esters 1 GM Cap PO SCH (10:01)
[2018-05-02] MEDS: Cholecalciferol 1,000 INTLU TAB PO SCH (10:04)
[2018-05-02] MEDS: BETA CAROTENE PO SCH (13:56)
[2018-05-02] MEDS: VITAMIN C PO SCH (13:57)
[2018-05-02] MEDS: VITAMIN B COMPLEX PO SCH (13:57)
--- NOTE | 2018-05-02 14:11 | CARD ---
APPROVED REPORT Date of service: 05/02/2018 EKG Measurement Heart [id number] <Conclusion> Sinus tachycardia LVH by voltage Nonspecific ST and T wave abnormality
--- NOTE | 2018-05-02 22:41 | PN ---
DATE: 05/02/2018 SUBJECTIVE: The patient was seen this morning in room 362, bed 1. She was resting in bed when I came in to the room. The nurses reported to me that she had a rapid response overnight and was transferred to the telemetry floor. This morning, when I entered the room, she was sleeping with a bit of pallor about her, lips were pale, but when she woke up, color improved. She was clear and alert and sharp, asymptomatic, not lightheaded or dizzy. PHYSICAL EXAMINATION: HEENT: Conjunctivae are pink. Mucous membranes are moist. NECK: Supple without masses. CHEST: Clear. HEART: Regular, not tachycardic. EXTREMITIES: She had a wedge between her feet, but no edema noted. IMPRESSION: 1. Status post right hip replacement. 2. History of hypertension. 3. History of gluten enteropathy. 4. History of lactose intolerance. PLAN: We will hold the [facility] for now. The patient ate breakfast well and is tolerating p.o. fluids. I will hold off on IV supplement of fluids at this point. Monitor her blood pressure closely. Check her morning labs. We will do a stat EKG now. Aaron Fraser MD
--- NOTE | 2018-05-02 23:19 | CP.PCM.PCO ---
<Naomi Cuevas - Last Filed: 05/02/18 23:19> Addendum Addendum: Resident paged regarding pt who appeared to have AMS that has resolved. Pt had rapid response earlier this afternoon. Pt seen and examined at bedside. VSS. EKG NSR RRR. Pt resting comfortably in NAD. <Shannan Oneal - Last Filed: 05/03/18 00:56> Attending/Attestation - Attestation I have personally seen and examined this patient.: Yes I have fully participated in the care of the patient.: Yes I have reviewed all pertinent clinical information: Yes
[2018-05-03 06:59] LABS: BLOOD UREA NITROGEN 10 mg/dL (7-21); CALCIUM 8.3 mg/dL (8.4-10.5); GFR NON-AFRICAN AMERICAN > 60
[2018-05-03 07:05] LABS: BASO # 0.06 K/mm3 (0.0-2.0); BASO % 0.5 % (0.0-3.0); EOS # 0.3 (0.0-0.7); EOS % 2.4 % (1.5-5.0); GRAN # 8.04 (1.4-6.5); GRAN % 71.9 % (50.0-68.0); LYMPH % 18.1 % (22.0-35.0); MEAN CELL VOLUME 90.8 fl (80.0-105.0); MEAN CORPUSCULAR HEMOGLOBIN 29.5 pg (25.0-35.0); MEAN CORPUSCULAR HGB CONC 32.5 g/dl (31.0-37.0); MEAN PLATELET VOLUME 9.9 fl (7.0-11.0); MONO # 0.8 (0.1-0.6); MONO % 7.1 % (1.0-6.0); RBC 2.71 10^6/uL (3.5-6.1); RED CELL DISTRIBUTION WIDTH 13.8 % (11.5-14.5); WHITE BLOOD COUNT 11.2 10^3/ul (4.5-11.0)
[2018-05-03] MEDS: Omega-3-Acid Ethyl Esters 1 GM Cap PO SCH (09:41)
[2018-05-03] MEDS: VITAMIN B COMPLEX PO SCH (09:45)
[2018-05-03] MEDS: VITAMIN C PO SCH (09:45)
[2018-05-03] MEDS: Cholecalciferol 1,000 INTLU TAB PO SCH (09:46)
--- NOTE | 2018-05-03 10:16 | CARD ---
APPROVED REPORT Date of service: 05/02/2018 EKG Measurement Heart [id number] <Conclusion> Normal sinus rhythm LVH by voltage
--- NOTE | 2018-05-03 13:59 | PN ---
DATE: 05/03/2018 DAILY PROGRESS NOTE The patient is an 87-year-old female who was admitted to Dr. Lino Whittaker's service on 04/30/2018 after a scheduled right hip replacement. I have known the patient for about a year from a medical point of view. She has a past medical history positive for celiac disease. She is lactose intolerant. She has hypertension. She is status post TIA in 2003, status post right wrist fracture in 2015. She is known to have a compression fracture of T10 since 2004. She fractured her zygoma in a fall in 09/2016 and fractured her right hip in 02/2017 and it was decided between the patient and Dr. Whittaker that it would be best to remove the hardware and have a total right hip replacement. During her hospital stay, the patient had been doing fairly well. However, two days ago on physical therapy, she became suddenly weak, a Rapid Response was called. The patient was transferred to the remote Telemetry floor. There were no apparent consequences of her weakness. Her EKGs have shown normal sinus rhythm with no acute changes. When seen today, the patient was sitting in a chair at bedside. Her sons are visiting and present. The patient voices no complaints. She does, however, appear pale. Her lungs are clear to auscultation and percussion. Her heart is regular. Her extremities are free of cyanosis, clubbing or edema. Morning's laboratory shows a white blood cell count to be 11.2, hemoglobin is 8 and this is slowly drifting down work from 9.3 over the past four days. Hematocrit is 24.6, platelet count is 205. Serum chemistries are unremarkable. Creatinine is 0.5, blood urea nitrogen is 10, glucose is 96. The patient is known to be O+ type blood. With a hemoglobin of 8, we will be transfusing one unit of packed red blood cells. He spoke to the patient about this and she is in agreement. The downward drift may be secondary to her surgery. However, as per the patient's sons, she was complaining of some nausea, belching and heartburn yesterday. Therefore, her stools will be checked for occult Heme. I will ask Dr. Cain, the evaporator operator, to consult on the patient also. Narendra Fraser MD [facility] # [id number]
--- NOTE | 2018-05-03 14:24 | CP.PCM.PN ---
Subjective - Date & Time of Evaluation Date of Evaluation: 05/03/18 Time of Evaluation: 14:20 - Subjective Subjective: Patient seen and examined. Patient lethargic. Going to receive one unit of PRBC's. Denies any pain. VSS WBC 11.2 Hgb 8 R hip: Minimal drainage on aquacel. Dressing changed. Incision cleaned and intact. No erythema or active drainage. Thigh and calf are soft and nontender. NVI distally POD#3 s/p R KOFFI Cont DVT prophylaxis Cont PT recheck hgb in am Discharge tomorrow am to rehab Objective - Vital Signs/Intake and Output Vital Signs (last 24 hours): Temp Pulse Resp BP Pulse Ox 97.7 F 89 20 142/57 L 96 05/03/18 06:00 05/03/18 06:00 05/03/18 06:00 05/03/18 06:00 05/03/18 06:00 Intake and Output: 05/03/18 05/03/18 06:59 18:59 Intake Total 200 Output Total 150 Balance 50 - Medications Medications: Current Medications Acetaminophen (Tylenol 325mg Tab) 650 mg PO Q6 [facility] Last Admin: 05/03/18 05:25 Dose: 650 mg Amlodipine Besylate (Norvasc) 5 mg PO DAILY [facility] Last Admin: 05/02/18 10:02 Dose: Not Given Apixaban (Eliquis) 2.5 mg PO BID [facility]; Protocol Last Admin: 05/03/18 09:41 Dose: 2.5 mg Cholecalciferol (Vitamin D) 2,000 intlu PO DAILY [facility] Last Admin: 05/03/18 09:46 Dose: 2,000 intlu Diphenoxylate HCl/Atropine (Lomotil 0.025-2.5 Mg Tablet) 1 tab PO PRN PRN PRN Reason: Diarrhea Docusate Sodium (Colace) 100 mg PO BID [facility] Last Admin: 05/03/18 09:37 Dose: Not Given Montelukast Sodium (Singulair) 10 mg PO DAILY [facility] Last Admin: 05/03/18 09:42 Dose: 10 mg Non-Formulary Medication (Beta-Carotene [Beta Carotene]) 25,000 iu PO DAILY [facility] Last Admin: 05/02/18 13:56 Dose: Not Given Non-Formulary Medication (Vitamin B Complex/Vitamin C [Berocca]) 1 tab PO DAILY [facility] Last Admin: 05/03/18 09:45 Dose: Not Given [id number] Ethyl Esters (Lovaza) 1 gm PO DAILY [facility] Last Admin: 05/03/18 09:41 Dose: 1 gm Oxycodone HCl (Oxycodone Immediate Release Tab) 5 mg PO Q4H PRN PRN Reason: Pain, Mild (1-3) Last Admin: 05/01/18 12:43 Dose: 5 mg Sennosides (Senokot Tab) 17.2 mg PO [facility] Last Admin: 05/02/18 21:43 Dose: Not Given Vitamin E (Vitamin E 400 Units Cap) 800 intlu PO DAILY [facility] Last Admin: 05/03/18 09:45 Dose: 800 intlu - Labs Labs: 05/03/18 05:30 05/03/18 05:30
[2018-05-03] MEDS: BETA CAROTENE PO SCH (17:24)
[2018-05-04 07:50] VITALS: O2SAT 98
[2018-05-04 07:55] LABS: BASO # 0.05 K/mm3 (0.0-2.0); BASO % 0.5 % (0.0-3.0); EOS # 0.7 (0.0-0.7); EOS % 6.2 % (1.5-5.0); GRAN # 7.33 (1.4-6.5); GRAN % 67.9 % (50.0-68.0); LYMPH % 18.4 % (22.0-35.0); MEAN CELL VOLUME 87.7 fl (80.0-105.0); MEAN CORPUSCULAR HEMOGLOBIN 28.5 pg (25.0-35.0); MEAN CORPUSCULAR HGB CONC 32.5 g/dl (31.0-37.0); MEAN PLATELET VOLUME 9.5 fl (7.0-11.0); MONO # 0.8 (0.1-0.6); RBC 3.51 10^6/uL (3.5-6.1); RED CELL DISTRIBUTION WIDTH 16.2 % (11.5-14.5); WHITE BLOOD COUNT 10.8 10^3/ul (4.5-11.0)
[2018-05-04 08:34] LABS: ALB/GLOB RATIO 0.9 (1.1-1.8); ALBUMIN 3.1 g/dL (3.0-4.8); ALT/SGPT 26 U/L (7-56); AST/SGOT 40 U/L (14-36); BLOOD UREA NITROGEN 14 mg/dL (7-21); CALCIUM 8.3 mg/dL (8.4-10.5); GFR NON-AFRICAN AMERICAN > 60
--- NOTE | 2018-05-04 09:22 | CARD ---
APPROVED REPORT Date of service: 05/04/2018 EKG Measurement Heart [id number] QT0T0 QTc0 <Conclusion> No QRS complexes found, no ECG analysis possible
[2018-05-04] MEDS: BETA CAROTENE PO SCH (09:31)
[2018-05-04] MEDS: Omega-3-Acid Ethyl Esters 1 GM Cap PO SCH (09:32)
[2018-05-04] MEDS: Cholecalciferol 1,000 INTLU TAB PO SCH (09:34)
[2018-05-04] MEDS: VITAMIN C PO SCH (09:34)
[2018-05-04] MEDS: VITAMIN B COMPLEX PO SCH (09:34)
[2018-05-04] MEDS ORDERED: Metoprolol Succinate 25 mg XL Tab PO SCH (10:30)
--- NOTE | 2018-05-04 12:28 | CP.PCM.CON ---
<Jordon Jackson - Last Filed: 05/04/18 12:35> History of Present Illness - History of Present Illness History of Present Illness: PGY 5 Initial GI Consult Gabriela Lynch is a 87F w/ hx of HTN,TIA who presented to the hospital for hip replacement. Pt is POD #3 right hip replacement. Pt states that she has a hx of anemia but cannot recall her last hgb. Pt had a complicated hospital course with AMS likely 2/2 orthostatic hypotension. Pt was restarted on eliqus. She had a hgb drop to 8. She received 1 unit PRBC. Denies any rectal bleeding, melena, and hematemsis. PMHx: HTN,TIA, PSHx:compression fracture T10,chronic rhiniti, B/L cataract surgery,left wrist fracture Social Hx: Unknown Family Hx: unknown ROS: 12 point ROS conducted, neg other than above Past Patient History - Infectious Disease Hx of Infectious Diseases: None - Tetanus Immunizations Tetanus Immunization: Unknown - Past Social History Smoking Status: Former Smoker - CARDIAC Hx Cardiac Disorders: Yes Hx Hypertension: Yes - PULMONARY Hx Respiratory Disorders: Yes (USED TO SMOKE CIGARETTES 2 PPD QUIT IN HER 40'S) - NEUROLOGICAL Hx Neurological Disorder: Yes Hx Dizziness: Yes (SYNCOPE) Hx Transient Ischemic Attacks (TIA): Yes - HEENT Hx HEENT Problems: Yes Hx Cataracts: Yes (BILATERAL SX.) - RENAL Hx Chronic Kidney Disease: No - ENDOCRINE/METABOLIC Hx Endocrine Disorders: No - HEMATOLOGICAL/ONCOLOGICAL Hx Blood Disorders: No - INTEGUMENTARY Hx Dermatological Problems: No Other/Comment: 04-30-18 POST RIGHT HIP TOTAL REPLACEMENT. REMOVAL OF 1 SCREW AND A NAIL. - MUSCULOSKELETAL/RHEUMATOLOGICAL Hx Musculoskeletal Disorders: Yes Hx Falls: Yes Hx Fractures: Yes (RIGHT FEMUR FX WITH SX) - GASTROINTESTINAL Hx Gastrointestinal Disorders: No - GENITOURINARY/GYNECOLOGICAL Hx Genitourinary Disorders: No - PSYCHIATRIC Hx Emotional Abuse: No Hx Physical Abuse: No Hx Substance Use: No - SURGICAL HISTORY Hx Surgeries: Yes (rt. hip surg.,BILATERAL CATARACT SX.) - ANESTHESIA Hx Anesthesia Reactions: No Hx Malignant Hyperthermia: No Meds Home Medications: Home Medication List Medication Instructions Recorded Confirmed Type Metoprolol Succinate XL [Toprol XL] 25 mg PO BRK 30 Days #30 tab 05/04/18 Rx Allergies/Adverse Reactions: Allergies Allergy/AdvReac Type Severity Reaction Status Date / Time gluten Allergy Intermediate DIARRHEA Verified 04/30/18 20:34 lactose Allergy Intermediate DIARRHEA Verified 04/30/18 20:34 EGG Allergy Mild ITCHING Verified 04/30/18 21:08 - Medications Medications: Current Medications Acetaminophen (Tylenol 325mg Tab) 650 mg PO Q4H PRN PRN Reason: Pain, Mild (1-3) Amlodipine Besylate (Norvasc) 5 mg PO DAILY [facility] Last Admin: 05/04/18 09:32 Dose: 5 mg Apixaban (Eliquis) 2.5 mg PO BID [facility]; Protocol Last Admin: 05/04/18 09:31 Dose: 2.5 mg Cholecalciferol (Vitamin D) 2,000 intlu PO DAILY [facility] Last Admin: 05/04/18 09:34 Dose: 2,000 intlu Diphenoxylate HCl/Atropine (Lomotil 0.025-2.5 Mg Tablet) 1 tab PO PRN PRN PRN Reason: Diarrhea Docusate Sodium (Colace) 100 mg PO BID [facility] Last Admin: 05/04/18 09:31 Dose: 100 mg Metoprolol Succinate (Toprol Xl) 25 mg PO BRK [facility] Montelukast Sodium (Singulair) 10 mg PO DAILY [facility] Last Admin: 05/04/18 09:33 Dose: 10 mg Non-Formulary Medication (Beta-Carotene [Beta Carotene]) 25,000 iu PO DAILY [facility] Last Admin: 05/04/18 09:31 Dose: 25,000 iu Non-Formulary Medication (Vitamin B Complex/Vitamin C [Berocca]) 1 tab PO DAILY [facility] Last Admin: 05/04/18 09:34 Dose: Not Given [id number] Ethyl Esters (Lovaza) 1 gm PO DAILY [facility] Last Admin: 05/04/18 09:32 Dose: 1 gm Oxycodone HCl (Oxycodone Immediate Release Tab) 5 mg PO Q4H PRN PRN Reason: Pain, Mild (1-3) Last Admin: 05/01/18 12:43 Dose: 5 mg Sennosides (Senokot Tab) 17.2 mg PO HS [facility] Last Admin: 05/03/18 22:00 Dose: Not Given Vitamin E (Vitamin E 400 Units Cap) 800 intlu PO DAILY [facility] Last Admin: 05/04/18 09:34 Dose: 800 intlu Physical Exam - Constitutional Appears: Well, No Acute Distress - Head Exam Head Exam: ATRAUMATIC, NORMOCEPHALIC - Eye Exam Eye Exam: Normal appearance - ENT Exam ENT Exam: Mucous Membranes Moist, Normal Exam - Neck Exam Neck exam: Positive for: Normal Inspection - Respiratory Exam Respiratory Exam: Clear to Auscultation Bilateral, NORMAL BREATHING PATTERN. absent: Rales, Rhonchi, Wheezes, Respiratory Distress - Cardiovascular Exam Cardiovascular Exam: REGULAR RHYTHM, +S1, +S2 - GI/Abdominal Exam GI & Abdominal Exam: Normal Bowel Sounds, Soft. absent: Firm, Guarding, Organomegaly, Rebound, Rigid - Extremities Exam Extremities exam: Negative for: joint swelling, pedal edema - Back Exam Back exam: NORMAL INSPECTION - Neurological Exam Neurological exam: Alert, Oriented x3 - Psychiatric Exam Psychiatric exam: Normal Affect, Normal Mood - Skin Skin Exam: Dry, Intact, Normal Color, Warm Results - Vital Signs Recent Vital Signs: Last Vital Signs Temp 98.6 F 05/04/18 06:00 Pulse 104 H 05/04/18 09:32 Resp 20 05/04/18 06:00 BP 123/65 05/04/18 09:32 Pulse Ox 98 05/04/18 06:00 - Labs Result Diagrams: 05/04/18 07:30 05/04/18 07:30 Labs: Laboratory Results - last 24 hr 05/03/18 05/04/18 05/04/18 13:10 01:05 07:30 WBC 10.8 RBC 3.51 Hgb 10.0 L D Hct 30.8 L MCV 87.7 D MCH 28.5 MCHC 32.5 RDW 16.2 H Plt Count 281 MPV 9.5 Gran % 67.9 Lymph % (Auto) 18.4 L Bledsoe % (Auto) 7.0 H Eos % (Auto) 6.2 H Baso % (Auto) 0.5 Gran # 7.33 H Lymph # (Auto) 2.0 Bledsoe # (Auto) 0.8 H Eos # (Auto) 0.7 Baso # (Auto) 0.05 Sodium Potassium Chloride Carbon Dioxide Anion Gap BUN Creatinine Est GFR ( Amer) Est GFR (Non-Af Amer) Random Glucose Calcium Phosphorus Magnesium Total Bilirubin AST ALT Alkaline Phosphatase Troponin I 0.02 Total Protein Albumin Globulin Albumin/Globulin Ratio Blood Type O POSITIVE Antibody Screen Negative Crossmatch See Detail BBK History Checked Patient has bt 05/04/18 07:30 WBC RBC Hgb Hct MCV MCH MCHC RDW Plt Count MPV Gran % Lymph % (Auto) Bledsoe % (Auto) Eos % (Auto) Baso % (Auto) Gran # Lymph # (Auto) Bledsoe # (Auto) Eos # (Auto) Baso # (Auto) Sodium 140 Potassium 3.9 Chloride 104 Carbon Dioxide 29 Anion Gap 11 BUN 14 Creatinine 0.6 L Est GFR ( Amer) > 60 Est GFR (Non-Af Amer) > 60 Random Glucose 103 Calcium 8.3 L Phosphorus 3.1 Magnesium 2.0 Total Bilirubin 0.7 AST 40 H ALT 26 Alkaline Phosphatase 67 Troponin I Total Protein 6.4 Albumin 3.1 Globulin 3.3 Albumin/Globulin Ratio 0.9 L Blood Type Antibody Screen Crossmatch BBK History Checked Assessment & Plan - Assessment and Plan (Free Text) Assessment: Gabriela Lynch is a 87F w/ hx of HTN,TIA who is POD #4 for right hip replacement. Normocytic anemia, Chronic?, S/p Right Hip replacement hx of TIA Plan -oupt GI Follow-up -follow h/h carefully -recommend hematology evaluation -can continue H2 nakia daily -keep hgb >8 -diet as tolerated D/W Dr. Cain <Brian Cain V - Last Filed: 05/04/18 23:11> Results - Vital Signs Recent Vital Signs: Last Vital Signs Temp 98.9 F 05/04/18 17:09 Pulse 96 H 05/04/18 17:09 Resp 19 05/04/18 17:09 BP 112/58 L 05/04/18 17:09 Pulse Ox 98 05/04/18 17:09 - Labs Result Diagrams: 05/04/18 07:30 05/04/18 07:30 Labs: Laboratory Results - last 24 hr 05/04/18 05/04/18 05/04/18 01:05 07:30 07:30 WBC 10.8 RBC 3.51 Hgb 10.0 L D Hct 30.8 L MCV 87.7 D MCH 28.5 MCHC 32.5 RDW 16.2 H Plt Count 281 MPV 9.5 Gran % 67.9 Lymph % (Auto) 18.4 L Bledsoe % (Auto) 7.0 H Eos % (Auto) 6.2 H Baso % (Auto) 0.5 Gran # 7.33 H Lymph # (Auto) 2.0 Bledsoe # (Auto) 0.8 H Eos # (Auto) 0.7 Baso # (Auto) 0.05 Sodium 140 Potassium 3.9 Chloride 104 Carbon Dioxide 29 Anion Gap 11 BUN 14 Creatinine 0.6 L Est GFR ( Amer) > 60 Est GFR (Non-Af Amer) > 60 Random Glucose 103 Calcium 8.3 L Phosphorus 3.1 Magnesium 2.0 Total Bilirubin 0.7 AST 40 H ALT 26 Alkaline Phosphatase 67 Troponin I 0.02 Total Protein 6.4 Albumin 3.1 Globulin 3.3 Albumin/Globulin Ratio 0.9 L Attending/Attestation - Attestation I have personally seen and examined this patient.: Yes I have fully participated in the care of the patient.: Yes I have reviewed all pertinent clinical information: Yes Notes (Text): This is an addendum to GI consult report dictated by the GI Fellow.The patient was seen and examined earlier. Medical records, lab studies, imagings were reviewed. Last 24 hours events reviewed. Agreed with the above treatment plan as outlined in GI Fellow 's notes with the addition of the following This patient had revision high surgery done found to have drop in Hb No obvious bright red blood per rectum or melena As per the family patient complains of dyspepsia and reflux at home On examination abdomen soft non-tender Continue empiric PPI therapy Followup hb Elective EGD unless patient develops active bleeding or significant drop in blood count suggestive of GI blood lose 05/04/18 23:06
--- NOTE | 2018-05-04 12:43 | DS ---
HISTORY OF PRESENT ILLNESS: The patient is an 87-year-old female who has a history of celiac disease, lactose intolerance, hypertension, status post TIA in 2004 with a history of several fractures associated with mechanical falls in the past. She fractured her right wrist in 2015. She has a compression fracture of T10 since 2004. She fractured her zygoma in a fall in 09/2016 and her right hip in 02/2017. She was evaluated by her orthopedist and had been decided best to remove hardware from the right hip fracture and undergo a total right hip replacement. So for this, the patient was admitted on 04/30/2018. She underwent the right hip replacement and did well. During physical therapy postoperatively, a rapid response was called because the patient was feeling slightly weak and needed to sit down. The patient has been doing well on remote telemetry. On remote telemetry, she showed some episodes of paroxysmal atrial fibrillation/atrial flutter. The last episode of which was yesterday p.m. Her hemoglobin had slowly drifted down to 8.3 over the 2 or 3 days postoperatively and therefore, yesterday, she received 1 unit of packed red blood cells in transfusion. She was found to be O+ type blood. PHYSICAL EXAMINATION GENERAL: When seen this morning, she is awake, alert and oriented. She has just completed morning care with the nurses' aide. She is feeling well, has no complaints. LUNGS: Clear anteriorly. HEART: Regular. The telemetry shows she is in regular sinus rhythm. VITAL SIGNS: Her blood pressure is 123/65 and she is afebrile, heart rate runs around the 100s and they had been there through her hospital stay. LABORATORY DATA: Laboratory studies show the white blood cell count to be 10.8, hemoglobin and hematocrit is 10 and 30.8 after yesterday's transfusion of 1 unit of packed cells, platelet count is 281. Serum chemistries are unremarkable. The calcium is minimally depressed at 8.3. Electrolytes, BUN and creatinine however are normal. HOSPITAL COURSE: The patient was evaluated by Dr. Whittaker earlier this morning and she is cleared for transfer to subacute care. She will be leaving for [facility] at 01:00 p.m. today. Because of her regular tachycardia at about 100 beats per minute and because of her burst of atrial fibrillation/flutter, I will start the patient on metoprolol succinate 25 mg 1 tablet p.o. every day and she will continue this through her stay at [facility] The patient was instructed to follow up with us after discharge from [facility]. FINAL DIAGNOSES: 1. 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 2. Paroxysmal atrial fibrillation/atrial flutter. 3. Hypertension. 4. Status post transient ischemic attack. Narendra Fraser MD
[2018-05-04 17:10] VITALS: BP 112/58; PULSE 96; RESP 19; TEMP 98.9
--- NOTE | 2018-05-05 02:11 | CON ---
DATE: 05/04/2018 CARDIOLOGY CONSULT REASON FOR CONSULTATION: Short run of atrial flutter on a monitor. HISTORY OF PRESENT ILLNESS: The patient is an 87-year-old female who has history of celiac disease, hypertension and history of TIA, history of falls and fracture of her right wrist as well as fracture of T10 vertebra. She recently underwent removal of hardware, right femoral neck fracture with total right hip replacement on 04/30/2018. The patient was noted to have a short run of atrial flutter on the monitor. The patient denies any chest pain or shortness of breath. SOCIAL HISTORY: The patient is a nonsmoker. MEDICATIONS: Eliquis 2.5 mg twice a day, Norvasc 5 mg once a day, Singulair 10 mg once a day, oxycodone 5 mg p.o. every 4 hours p.r.n., Toprol-XL 25 mg daily. PHYSICAL EXAMINATION GENERAL: The patient is an elderly female who does not appear to be in acute distress. VITAL SIGNS: Blood pressure 119/68, heart rate 98, temperature 98.6, respiration 20. HEENT: Normocephalic. CHEST: Clear. HEART: S1, S2 regular. ABDOMEN: Soft. EXTREMITIES: No edema. LABORATORY DATA: Today's hemoglobin and hematocrit 10 and 30.8. White count and platelet count are within normal limits. Today's SMA-7 is within normal limit except for creatinine of 0.6, calcium is slightly below normal at 8.3. EKG on 05/02/2018 revealed normal sinus rhythm and LVH by voltage. Earlier EKG on the same day revealed sinus tachycardia at the rate of 101 and EKG on 05/01/2018 revealed sinus rhythm at rate of 95. TSH level was within normal limit. ASSESSMENT: 1. Status post removal of hardware of right femoral neck and right total hip replacement. 2. Short run of atrial flutter. 3. History of multiple falls and multiple fractures before. RECOMMENDATIONS: Obtain a 12-lead EKG today and if unremarkable, the patient can be discharged on Eliquis 2.5 mg twice a day, Norvasc 5 mg once a day, Toprol-XL 25 mg daily. Nash Flower MD
--- NOTE | 2018-05-05 09:14 | CARD ---
APPROVED REPORT Date of service: 05/04/2018 EKG Measurement Heart [id number] <Conclusion> Sinus rhythm with blocked premature atrial complex NSSTW changes Small inferior q waves
== END 2018-05-04 18:37 | DRG 470 ==
LOC: SDAINP 08:19 → EDSTATUS 10:30 → ERH 15:11 → 5RSO 18:51 → 3RNO 05-01 12:26
PROVIDERS: ADMIT Orthopaedic Surgery; ATTEND Orthopaedic Surgery
PROC: 0SP904Z Removal of Internal Fixation Device from Right Hip Joint, Open Approach (ICD-10-PCS; 2018-04-30)
PROC: 0SR90JA Replacement of Right Hip Joint with Synthetic Substitute, Uncemented, Open Approach (ICD-10-PCS; principal; 2018-04-30 10:30)
DX: T84.090A Other mechanical complication of internal right hip prosthesis, initial encounter (principal); I48.92 Unspecified atrial flutter; M16.11 Unilateral primary osteoarthritis, right hip; D64.9 Anemia, unspecified; E73.9 Lactose intolerance, unspecified; I10 Essential (primary) hypertension; I48.0 Paroxysmal atrial fibrillation; I95.1 Orthostatic hypotension; K21.9 Gastro-esophageal reflux disease without esophagitis; K90.0 Celiac disease; M48.54XG Collapsed vertebra, not elsewhere classified, thoracic region, subsequent encounter for fracture with delayed healing; Z86.73 Personal history of transient ischemic attack (TIA), and cerebral infarction without residual deficits; Z87.81 Personal history of (healed) traumatic fracture; Z87.891 Personal history of nicotine dependence; Z91.81 History of falling; Z98.42 Cataract extraction status, left eye; Z98.41 Cataract extraction status, right eye

== ENCOUNTER 2018-10-04 11:15 | Outpatient (CLI) | payer MEDICARE | END 2018-10-04 11:16 | disposition home or self-care (01) | LOC: RAD 11:15 ==